=== PATIENT | female | born 1995 | race Caucasian/White ===

== ENCOUNTER 2020-12-13 00:53 | Emergency (ER) | payer MEDICAID, SELFPAY ==
--- NOTE | ~2020-12-13 | XR_ITS ---
EXAMINATION: XR TIBIA AND FIBULA, LEFT CLINICAL INFORMATION: Fall. Rule out fracture and foreign body. COMPARISON: None TECHNIQUE: AP and lateral views of the left tibia and fibula were obtained. FINDINGS: Soft tissue irregularity overlies the proximal tibia/fibula. No fracture or cortical disruption. Alignment is maintained at the knee and ankle. No radiopaque foreign body. XR/XR tibia fibula LT 2V IMPRESSION: Proximal soft tissue laceration below the knee. No radiopaque foreign body or acute osseous abnormality.
[2020-12-13 01:06] VITALS: BP 121/59; BP 130/84; PULSE 113; PULSE 90; RESP 15; TEMP 36.8; O2SAT 98; BMI 38.4
--- NOTE | 2020-12-13 01:30 | ED_ITS ---
HPI - Wound/Laceration General Chief Complaint: Wound/Laceration Stated Complaint: etoh fall leg lac Time Seen by Provider: 12/13/20 01:13 Source: patient, family (Significant other's) and EMS Mode of arrival: EMS Limitations: no limitations History of Present Illness HPI narrative: 25-year-old female presented by ambulance for evaluation of injury to the left leg after fall. This is a 25-year-old female who admitted to drinking alcohol last night, patient was going upstairs missed her step and fell down causing injury to her left leg causing a 9 cm cut under the left knee. Patient otherwise declined any other symptoms. Related Data Previous Rx's Medication Instructions Recorded doxycycline hyclate 100 mg PO BID #14 cap 12/13/20 Allergies Allergy/AdvReac Type Severity Reaction Status Date / Time No Known Allergies Allergy Unverified 04/01/20 17:55 [No Known Allergies*] Review of Systems Review of Systems: All other systems are reviewed and are negative Constitutional: Reports as per HPI and Reports no additional constitutional complaints Eyes: Reports as per HPI and Reports no additional eye complaints Reports system reviewed and no additional complaints, except as documented Cardiovascular: Reports as per HPI and Reports no additional cardiovascular complaints Respiratory: Reports as per HPI and Reports no additional respiratory complaints Gastrointestinal: Reports as per HPI and Reports no additional gastrointestinal complaints Genitourinary: Reports no additional female genitourinary complaints Musculoskeletal: Reports no additional musculoskeletal complaints Skin/Breast: Reports system reviewed and no additional complaints, except as docu Psychiatric: Reports no additional psychiatric complaints Endocrine: Reports no additional endocrine complaints Hematologic/Lymphatic: Reports no additional hematologic/lymphatic complaints Allergic/Immunologic: Reports no additional allergic/immunologic complaints Reports system reviewed and no additional complaints, except as documented and Reports Abnormal speech present [facility] Past Medical History Medical History No known health problems Surgical History No history of previous surgery Social History Social History Alcohol intake: current Alcohol intake frequency: a few times a week Alcohol type: hard liquor Patient Tobacco Use Status: Current everyday Tobacco user Use of substances other than those prescribed or required for medical reasons: No Advance Directives: No Advance Directives Information Provided: No Patient : No Physical Exam Vital Signs: Vital Signs: Last Vital Signs Temp 98.3 F 12/13/20 01:06 Pulse 113 H 12/13/20 01:06 Resp 15 12/13/20 01:06 BP 121/59 L 12/13/20 01:06 Pulse Ox 98 12/13/20 01:06 Body Mass Index 38.4 Vital signs have been reviewed as appeared to be correct. Blood pressure normal. Heart rate elevated. Respiration rate normal. Temperature normal. Oxygen saturation normal. Appearance: Alert. Oriented X3. No acute distress. Head: Normal external exam. Normocephalic. Atraumatic. No Serrano signs noted. No raccoon eyes noted Eyes: PERRLA. EOMI. Conjunctiva and sclera normal. Eyelids normal. ENT: TM's Normal. Pharynx normal. Uvula midline. Moist mucous membranes. No trismus noted. No drooling noted. No muffled voice noted. Neck: Normal inspection. Neck supple. FROM. No adenopathy. Thyroid Normal. No meningeal signs. No neck mass noted. CVS: Normal heart rate and rhythm. Heart sound normal. No murmurs noted. Pulses normal throughout. Respiratory: No respiratory distress. Painless inspiration. Breath sounds normal. No wheezes/rales/rhonchi noted. Chest nontender. No accessory muscle usage noted or decreased air movement noted. Abdomen: Soft and nontender. Bowel sounds normal in all 4 quadrants. No distention noted. No organomegaly noted. No visible injury noted. Back: No CVA tenderness. Full range of motion noted. Skin: Skin warm and dry. Normal skin color. Normal skin turgor. No rashes/lesions/lacerations noted. Extremities: No lower extremity edema. Extremities exhibit normal range of motion. Extremities nontender. Neuro: Oriented X 3. No motor deficit. No sensory deficit. Reflexes normal. Course Course Course Narrative: Assessment and plan. 25-year-old female fell while trunk sustained a 9 cm laceration in her left leg, please refer to procedure note, because size of the wound and proximity to the bone will start the patient on prophylactic antibiotic doxycycline, will update tetanus booster. Procedures Laceration Laceration 1: Site: lower extremity (Proximal left leg under the left knee.) Side (If applicable): left Size (cm): 9 Description: linear Depth: simple, single layer Local Anesthetic: lidocaine 2% Amount of anesthesia used (mL): 20 Pre-repair: wound explored and irrigated extensively (Copious irrigation of 2 L of normal saline.) Skin layer closed with: other (Surgical santosh were used #21 santosh) MDM - Wound/Laceration Imaging Data Left leg x-ray: Radiologist's impression: Proximal soft tissue laceration below the knee. No radiopaque foreign body or acute osseous abnormality. Discharge Plan Discharge Clinical Impression: Laceration Patient Disposition: Home, Self-Care Instructions: Laceration (ED) Additional Instructions: [place] need to be removed in 7-10 days either return to the emergency department or by your primary doctor. Prescriptions: New doxycycline hyclate 100 mg capsule 100 mg PO BID Qty: 14 RF: 0 Referrals: [facility] [Primary Care Provider] - 10 days (For santosh removed)
[2020-12-13] MEDS: Diphth,Pertus(ACell),Tet Adult 0.5 ML SYRINGE IM (01:48)
== END 2020-12-13 02:13 | disposition home or self-care (01) ==
PROVIDERS: Emergency Provider Emergency Medicine
DX: S81.812A Laceration without foreign body, left lower leg, initial encounter (principal); W17.89XA Other fall from one level to another, initial encounter; Y93.89 Activity, other specified; Y92.038 Other place in apartment as the place of occurrence of the external cause; Y99.9 Unspecified external cause status
CPT/HCPCS: 12004; 73590; 90471; 90715; 99284

== ENCOUNTER 2021-01-03 16:36 | Emergency (ER) | payer MEDICAID, SELFPAY ==
[2021-01-03 16:39] VITALS: BP 137/74; PULSE 100; RESP 16; TEMP 37; O2SAT 98; BMI 34.9
--- NOTE | 2021-01-03 17:15 | ED_ITS ---
HPI - General Adult General Chief complaint: General Medical Stated complaint: Staple removal Time Seen by Provider: 01/03/21 17:14 Source: patient Mode of arrival: ambulatory Limitations: no limitations History of Present Illness HPI narrative: Otherwise healthy 25-year-old female who denies significant past medical or surgical history denies any allergies suffered a laceration to the upper nassar of the left leg on December 13 which required total of 21 santosh for repair. She was instructed to have these removed in 10-14 days. States she was busy and forgot. At that time she was also given tetanus vaccination and prophylactic antibiotic of doxycycline b.i.d. for 10 days which she also states she forgot to take. States slight redness at the site of the santosh otherwise no swelling or discharge. Onset (ago): week(s) Location: left and lower extremity Radiation: non-radiation Severity: mild Relieving factors: none Exacerbating factors: none Associated symptoms: denies other symptoms Related Data Previous Rx's Medication Instructions Recorded doxycycline hyclate 100 mg PO BID #14 cap 12/13/20 Allergies Allergy/AdvReac Type Severity Reaction Status Date / Time No Known Allergies Allergy Unverified 04/01/20 17:55 [No Known Allergies*] Review of Systems Review of Systems: Constitutional: No Weight loss, No Fever, No Chills, No Night Sweats, No Fatigue, No Malaise ENT/Mouth: No Hearing loss, No Ear Pain, No Nasal Congestion, No Sinus Pain, No Hoarseness, No sore throat, No Rhinorrhea, No Swallowing Difficulty Eyes: No Eye Pain, No Swelling, No Redness, No Foreign Body, No Discharge, No Vision Changes Cardiovascular: No Chest Pain, No SOB, No Dyspnea on Exertion, No Orthopnea, No Edema, No Palpitations Respiratory: No Cough, No Sputum, No Wheezing, No Smoke Exposure, No Dyspnea Gastrointestinal: No Nausea, No Vomiting, No Diarrhea, No Constipation, No abdominal Pain, No Hematochezia, No Melena Genitourinary: no irregular bleeding, No Dysuria, No Urinary Frequency, No Hematuria, No Urinary Incontinence, No Urgency, No Flank Pain, No Urinary Flow Changes, No Hesitancy Musculoskeletal: No joint pain, No Myalgias, No Joint Swelling Skin: No Skin Lesions, No rash, slight redness at the laceration site Neuro: No Weakness, No Numbness, No Paresthesias, No Loss of Consciousness, No Dizziness, No Headache Psych: No Social Issues Heme/Lymph: No Bruising, No Bleeding,No Lymphadenopathy Endocrine: No Polyuria, No Polydipsia, No Temperature Intolerance Yes all other systems are reviewed and are negative [facility] Past Medical History Medical History No known health problems Surgical History No history of previous surgery Social History Social History Alcohol intake: current Alcohol intake frequency: a few times a week Alcohol type: hard liquor Patient Tobacco Use Status: Current everyday Tobacco user Advance Directives: No Advance Directives Information Provided: Yes Patient : No Physical Exam Vital Signs: Vital Signs: Last Vital Signs Temp 98.6 F 01/03/21 16:39 Pulse 100 01/03/21 16:39 Resp 16 01/03/21 16:39 BP 137/74 01/03/21 16:39 Pulse Ox 98 01/03/21 16:39 Body Mass Index 34.9 Reviewed Const: General: cooperative and healthy appearing; No acute distress or intoxicated appearing Nutritional Appearance: average body habitus Orientation/consciousness: patient oriented x3 Chest: Chest palpation & inspection: normal inspection of the chest Resp: Effort & Inspection: normal respiratory effort Cardio: Jugular venous distension: no JVD Skin: General skin exam: no rashes or lesions noted Neuro: General: patient oriented x3 Extrem: General: Yes normal to inspection Elbow/forearm/wrist images: 1. Previously repaired laceration site with santosh intact. Total count santosh 21. All santosh intact. There is very minimal erythema at the staple site. There is no induration or expressible discharge. There is no pain. Distally intact. Full range of motion. Negative Homans. Pulses within normal limits. Course Course Course Narrative: 25-year-old otherwise healthy female here for staple removal after repair of laceration 21 days ago delayed removal given that she states she ?forgot? there is very slight erythema at the site. There is slight dehiscence in the center of the laceration otherwise is healed well I will leave [address] otherwise have removed the 18 other santosh. She will take doxycycline as prescribed. States she does not have much sun exposure I did provide her wit h warning signs for doxycycline use. She feels comfortable plan. She will return in 3 days to have the remainder 3 santosh removed. Procedures Procedure Narrative Procedure Narrative: Left nassar site clean with alcohol prep wipe, 18 santosh removed using staple removal tool. Tolerated very well. No bleeding or expressible discharge the site. Very mild erythema. DSD applied. Discharge Plan Discharge Clinical Impression: Removal of staple, Infected laceration Patient Disposition: Home, Self-Care Instructions: Laceration (ED), Staple Care (ED) Additional Instructions: You had a total of 18 santosh removed from the left nassar- Due to delayed removal there is a slight infection at the site Please take the antibiotics as prescribed Return in 3 days to have the remainder 3 santosh removed Return sooner if any concerns or worsening symptoms Follow wound care instructions as reviewed; do not submerge the wound in water, bathtub, river. Thank you Prescriptions: No Action doxycycline hyclate 100 mg capsule 100 mg PO BID Qty: 14 RF: 0 Referrals: Golden Johnson, [facility] [Emergency Midlevel Provider] - 3 days (Staple removal)
== END 2021-01-03 17:30 | disposition home or self-care (01) ==
PROVIDERS: Emergency Provider Emergency Medicine
DX: S81.812D Laceration without foreign body, left lower leg, subsequent encounter (principal); L08.9 Local infection of the skin and subcutaneous tissue, unspecified; X58.XXXD Exposure to other specified factors, subsequent encounter
CPT/HCPCS: 99283

== ENCOUNTER 2021-09-25 18:34 | Emergency (ER) | payer MEDICAID, SELFPAY ==
[2021-09-25 18:39] VITALS: BP 146/74; PULSE 103; RESP 19; TEMP 36.4; O2SAT 99; BMI 36.6
--- NOTE | 2021-09-25 20:48 | ED.GENADULT ---
HPI - General Adult General Chief complaint: General Medical Stated complaint: coughing/tooth pain Time Seen by Provider: 09/25/21 20:36 History of Present Illness HPI narrative: Patient is a 25-year-old female presents today with having coughing congestion upper respiratory symptoms that is been ongoing since Sunday. Patient is a smoker. Have not been vaccinated for COVID. Also proximally 1 and half weeks ago patient had her front teeth pulled. Has been having pain in that area as well. There is no systemic complaints. No nausea no vomiting. No cough no congestion or upper respiratory symptoms. Patient from home. No chest pain no fever Related Data Previous Rx's Medication Instructions Recorded doxycycline hyclate 100 mg capsule 100 mg PO BID #14 cap 12/13/20 azithromycin 250 mg tablet See Rx Instructions .ROUTE 09/25/21 .COMPLEX #6 tab Allergies Allergy/AdvReac Type Severity Reaction Status Date / Time No Known Allergies Allergy Verified 09/25/21 20:31 [No Known Allergies*] Review of Systems Review of Systems: Positive generalized malaise positive coughing upper respiratory symptoms Positive toothache Yes all other systems are reviewed and are negative [facility] Past Medical History Attestation statement: The following information was validated with the patient. Medical History No known health problems Surgical History No history of previous surgery Social History Social History Alcohol intake: current Alcohol intake frequency: a few times a week Alcohol type: hard liquor Patient Tobacco Use Status: Current everyday Tobacco user Advance Directives: No Advance Directives Information Provided: Yes Physical Exam ED Vital Signs: Vital Signs - 24 hr 09/25/21 18:39 Temperature 97.6 F Pulse Rate 103 H Respiratory Rate 19 Blood Pressure 146/74 H Pulse Oximetry 99 BMI result Body Mass Index 36.6 Appearance: Alert. Oriented X3. No acute distress. Eyes: Pupils equal, round and reactive to light. ENT: Pharynx normal. There is a in dry socket in the upper front tooth. Posterior pharynx is normal. There is no erythema noted. TMs are intact. Neck: Normal inspection. Neck supple. No lymph nodes noted. No crepitus CVS: Normal heart rate and rhythm. Pulses normal. Normal S1 and S2 Respiratory: No respiratory distress. Breath sounds normal. No Wheezing. No rales Abdomen: Soft and nontender. No rigidity. No distention. good BS x4 Skin: Skin warm and dry. Normal skin color. Normal skin turgor. Extremities: No lower extremity edema. Neurovascular intact to all extremities. No Lacerations. No Rash Neuro: Oriented X 3. No motor deficit. No sensory deficit. Moving all extermities. No slurred speech Medical Decision Making MDM Narrative Medical decision making narrative: O2 sats 98% on room air. No distress. Lungs are clear. Sent off a COVID anyway as patient had not received her vaccine. Will discharge patient home. Given some lidocaine lollypop for her dry socket told to follow up with her dentist. Patient is in stable condition COVID RSV flu is negative. Will give patient a Z-Chris with discharge patient. Lab Data Labs: Lab Results 09/25/21 09/25/21 09/25/21 Range/Units 20:44 20:44 20:44 COVID-19 ([place]) Negative (Negative) COVID-19 Clin Com See Note Influenza Type A (DINO) Negative (Negative) Influenza Type B (DINO) Negative (Negative) Influenza A & B Note See Note S. pyogenes GrpA DINO Negative (Negative) Discharge Plan Discharge Clinical Impression: Tooth ache, Upper respiratory infection Patient Disposition: Home, Self-Care Instructions: Upper Respiratory Infection (DC) Prescriptions: New azithromycin 250 mg tablet See Rx Instructions .ROUTE .COMPLEX Qty: 6 0RF Rx Instructions: take 500 mg today (day 1), then 250 mg for 4 days (days 2-5) No Action doxycycline hyclate 100 mg capsule 100 mg PO BID Qty: 14 0RF Referrals: [facility] [Primary Care Provider] - 2 days
[2021-09-25 21:00] LABS: IDNOW Serial# 08D9AD1C
[2021-09-25 21:01] LABS: Strep A Nucleic Acid Negative (Negative)
[2021-09-25 21:08] LABS: COVID-19 Test Negative (Negative); IDNOW Serial# 16C4AD1C; Influenza A Negative (Negative); Influenza B2 Negative (Negative)
== END 2021-09-25 21:36 | disposition home or self-care (01) ==
PROVIDERS: Emergency Provider Emergency Medicine Emergency Medical Services
DX: J06.9 Acute upper respiratory infection, unspecified (principal); R05.9 Cough, unspecified; K08.89 Other specified disorders of teeth and supporting structures; F17.210 Nicotine dependence, cigarettes, uncomplicated; Z20.822 Contact with and (suspected) exposure to COVID-19; Z71.6 Tobacco abuse counseling; Z79.899 Other long term (current) drug therapy
CPT/HCPCS: 87502; 87635; 87651; 99283

== ENCOUNTER 2021-12-19 20:28 | Emergency (ER) | payer MEDICAID, SELFPAY ==
--- NOTE | ~2021-12-19 | US_ITS ---
EXAMINATION: ULTRASOUND RENAL LEFT CLINICAL INFORMATION: Left flank pain COMPARISON: Previous renal ultrasound January 2019 TECHNIQUE: Grayscale and color imaging of the left kidney FINDINGS: Left kidney is normal in size and contour and measures 12.6 x 5 x 4.8 cm in dimension. Renal cortical thickness and echogenicity is normal. No renal stone, mass or hydronephrosis is seen. US/US renal LT IMPRESSION: Normal left kidney.
[2021-12-19 21:00] VITALS: BP 127/67; PULSE 93; RESP 15; TEMP 37; O2SAT 97; BMI 36.6
--- NOTE | 2021-12-19 21:32 | ED.FEMALEGU ---
HPI - Female Genitourinary General Chief complaint: Urogenital-Female Stated complaint: Flank pain Time Seen by Provider: 12/19/21 21:25 Source: patient Mode of arrival: ambulatory Limitations: no limitations History of Present Illness MD elicited complaint: dysuria, flank pain and difficulty urinating Pertinent past history: pyelonephritis Onset (ago): week(s) (1) Location of symptoms: low back and flank Severity: moderate Female Urogenital Radiation: LLQ Quality of pain: dull and aching Consistency: intermittent Vaginal bleeding: none Urinary symptoms: Dysuria, Urgency, Frequency and Foul Smelling Urine Exacerbating factors: urination Relieving factors: none Associated symptoms: back pain Treatment prior to arrival: none Related Data Previous Rx's Medication Instructions Recorded doxycycline hyclate 100 mg capsule 100 mg PO BID #14 cap 12/13/20 azithromycin 250 mg tablet See Rx Instructions .ROUTE 09/25/21 .COMPLEX #6 tab cephalexin 500 mg capsule 500 mg PO TID 7 Days #21 cap 12/19/21 phenazopyridine 100 mg tablet 100 mg PO TID PRN #6 tab 12/19/21 (Pyridium) Allergies Allergy/AdvReac Type Severity Reaction Status Date / Time No Known Allergies Allergy Verified 09/25/21 20:31 [No Known Allergies*] Review of Systems Review of Systems: Constitutional : No Weight loss, No Fever, No Chills ENT/Mouth : No sore throat, No Rhinorrhea Eyes: No Swelling, No Redness Cardiovascular : No Chest Pain, No SOB, NoEdema Respiratory : No Cough, No Sputum, No Wheezing Gastrointestinal : no Nausea, no Vomiting, no Diarrhea no abdominal Pain, No Hematochezia, No Melena, pos flank pain Genitourinary : pos Dysuria, pos Urinary Frequency, No Hematuria, pos Urgency Musculoskeletal : No joint pain, No Myalgias, No Joint Swelling Skin : No Skin Lesions, No rash Neuro : No Weakness, No Numbness, No Dizziness, No Headache Psych : No Anxiety/Panic, No Depression Heme/Lymph: No Bruising, No Lymphadenopathy Endocrine : No Polyuria, No Polydipsia All other systems reviewed and are negative. [facility] Past Medical History Attestation statement: The following information was validated with the patient. Medical History (Updated 12/19/21 @ 22:43 by Carmen Carrion DO) No known health problems Surgical History (Updated 12/19/21 @ 21:45 by Carmen Carrion DO) Hx of cholecystectomy No history of previous surgery Social History Social History Alcohol intake: current Alcohol intake frequency: a few times a week Alcohol type: hard liquor Patient Tobacco Use Status: Current everyday Tobacco user Advance Directives: No Advance Directives Information Provided: No Physical Exam Vital Signs: Vital Signs: Last Vital Signs Temp 98.4 F 12/19/21 23:29 Pulse 73 12/19/21 23:29 Resp 16 12/20/21 00:11 BP 104/60 12/19/21 23:29 Pulse Ox 99 12/19/21 23:29 BMI result Body Mass Index 36.6 Appearance: Alert. Oriented X3. No acute distress. Eyes: Pupils equal, round and reactive to light. ENT: Pharynx normal. Neck: Normal inspection. Neck supple. CVS: Normal heart rate and rhythm. Pulses normal. Respiratory: No respiratory distress. Breath sounds normal. Abdomen: Soft and nontender. Back: mild L CVA ttp Skin: Skin warm and dry. Normal skin color. Normal skin turgor. Extremities: No lower extremity edema. No calf ttp Neuro: Oriented X 3. No motor deficit. No sensory deficit. Course Course Course Narrative: not toxic, no stone seen on US - stable for DC MDM - Female Genitourinary MDM Narrative Medical decision making narrative: 26 yo female with hx of cholecystectomy comes here with c/o L flank pain and dysuria no vomiting no fevers, not toxic. At this time patient's symptoms concerning for UTI vs pyelonephritis. She is afebrile not toxic, not vomiting. Will obtain UA, labs, US to r/o stone. Suspect if infection given she is not toxic can be managed with oral medications at home. Lab Data Result diagrams: 12/19/21 21:28 12/19/21 21:28 Labs: Lab Results 12/19/21 12/19/21 12/19/21 Range/Units 21:28 21:28 22:07 WBC 6.9 (4.8-10.8) X10*3/uL RBC 4.51 (4.20-5.50) X10*6/uL Hgb 11.6 L (12.0-16.0) g/dl Hct 36.7 L (37.0-47.0) % MCV 81.4 (80.0-98.0) fL MCH 25.7 L (27.0-33.0) pg MCHC 31.6 (31.0-35.0) g/dl RDW 14.8 (11.0-16.0) % Plt Count 198 (160-400) X10*3/uL MPV 9.3 L (9.4-12.3) fL Immature Gran % (Auto) 0.3 (0.0-0.4) % Neut % (Auto) 57.5 (45-73) % Lymph % (Auto) 31.7 (20-40) % Leslie % (Auto) 6.2 (2-11) % Eos % (Auto) 3.9 (0-4) % Baso % (Auto) 0.4 (0-2) % Lymph # (Auto) 2.2 (1.2-4.9) X10*3/uL Leslie # (Auto) 0.4 (0.1-1.2) X10*3/uL Eos # (Auto) 0.3 (0.0-0.4) X10*3/uL Baso # (Auto) 0.0 (0.0-0.2) X10*3/uL Abs Immat Gran (auto) 0.02 (0.00-0.03) X10*3/uL Absolute Neuts (auto) 4.0 (2.0-8.3) x10*3/uL Absolute Nucleated RBC 0.000 (0.0-0.012) X10*3/uL Nucleated RBC % (auto) 0.0 (0.0-0.2) /100WBC Sodium 140 (135-145) mmol/L Potassium 3.8 (3.3-5.1) mmol/L Chloride 104 (96-108) mmol/L Carbon Dioxide 28 (22-29) mmol/L Anion Gap 12 (12-20) BUN 13 (9-16) mg/dL Creatinine 0.75 (0.5-1.4) mg/dL Estim Creat Clear Calc 130.6 Estimated GFR > 60 Random Glucose 92 (60-115) mg/dL Calcium 9.1 (8.4-10.2) mg/dL Total Bilirubin 0.4 (0.0-1.0) mg/dL AST 20 (5-31) U/L ALT 27 (0-31) U/L Alkaline Phosphatase 73 (39-117) U/L Total Protein 6.9 (6.5-8.0) g/dL Albumin 4.1 (3.5-5.0) g/dL Urine Color Urine Appearance Urine pH (5.0-8.0) Ur Specific [place] (1.005-1.025) Urine Protein (NEG-TRACE) MG/DL Urine Glucose (UA) (NEG) MG/DL Urine Ketones (NEG) MG/DL Urine Blood (NEG) Urine Nitrite (NEG) Ur Leukocyte Esterase (NEG) Urine RBC (0) /HPF Urine WBC (0-4) /HPF Ur Squamous Epith Cells /LPF Urine Bacteria /LPF Urine Mucus /LPF Urine Test NEGATIVE (NEGATIVE) 12/19/21 Range/Units 22:08 WBC (4.8-10.8) X10*3/uL RBC (4.20-5.50) X10*6/uL Hgb (12.0-16.0) g/dl Hct (37.0-47.0) % MCV (80.0-98.0) fL MCH (27.0-33.0) pg MCHC (31.0-35.0) g/dl RDW (11.0-16.0) % Plt Count (160-400) X10*3/uL MPV (9.4-12.3) fL Immature Gran % (Auto) (0.0-0.4) % Neut % (Auto) (45-73) % Lymph % (Auto) (20-40) % Leslie % (Auto) (2-11) % Eos % (Auto) (0-4) % Baso % (Auto) (0-2) % Lymph # (Auto) (1.2-4.9) X10*3/uL Leslie # (Auto) (0.1-1.2) X10*3/uL Eos # (Auto) (0.0-0.4) X10*3/uL Baso # (Auto) (0.0-0.2) X10*3/uL Abs Immat Gran (auto) (0.00-0.03) X10*3/uL Absolute Neuts (auto) (2.0-8.3) x10*3/uL Absolute Nucleated RBC (0.0-0.012) X10*3/uL Nucleated RBC % (auto) (0.0-0.2) /100WBC Sodium (135-145) mmol/L Potassium (3.3-5.1) mmol/L Chloride (96-108) mmol/L Carbon Dioxide (22-29) mmol/L Anion Gap (12-20) BUN (9-16) mg/dL Creatinine (0.5-1.4) mg/dL Estim Creat Clear Calc Estimated GFR Random Glucose (60-115) mg/dL Calcium (8.4-10.2) mg/dL Total Bilirubin (0.0-1.0) mg/dL AST (5-31) U/L ALT (0-31) U/L Alkaline Phosphatase (39-117) U/L Total Protein (6.5-8.0) g/dL Albumin (3.5-5.0) g/dL Urine Color YELLOW Urine Appearance HAZY Urine pH 7.0 (5.0-8.0) Ur Specific [place] 1.020 (1.005-1.025) Urine Protein NEG (NEG-TRACE) MG/DL Urine Glucose (UA) NEG (NEG) MG/DL Urine Ketones NEG (NEG) MG/DL Urine Blood 1+ H (NEG) Urine Nitrite NEG (NEG) Ur Leukocyte Esterase TRACE H (NEG) Urine RBC 10-14 H (0) /HPF Urine WBC 10-14 H (0-4) /HPF Ur Squamous Epith Cells 1+ /LPF Urine Bacteria 2+ /LPF Urine Mucus 2+ /LPF Urine Test (NEGATIVE) Discharge Plan Discharge Clinical Impression: Pyelonephritis Patient Disposition: Home, Self-Care Instructions: Kidney Infection (ED) Additional Instructions: return to ED for any worsening symptoms or concerns no kidney stone seen on US Prescriptions: New cephalexin 500 mg capsule 500 mg PO TID 7 Days Qty: 21 0RF phenazopyridine [Pyridium] 100 mg tablet 100 mg PO TID PRN (Reason: pain) Qty: 6 0RF No Action doxycycline hyclate 100 mg capsule 100 mg PO BID Qty: 14 0RF azithromycin 250 mg tablet See Rx Instructions .ROUTE .COMPLEX Qty: 6 0RF Rx Instructions: take 500 mg today (day 1), then 250 mg for 4 days (days 2-5) Referrals: Yuliya Cadet [facility] [Primary Care Provider] - 2 days (if not better) Stand Alone Forms: Work/School Release Interventions: ED Discharge Assessment Last Done: 12/20/21 00:12 Discharge Date/Time: 12/20/21 00:13
[2021-12-19 21:33] LABS: MANUAL DIFF FLAG NO
[2021-12-19 21:35] LABS: Basophils Percent Auto 0.4 % (0-2); Eosinophils Absolute Auto 0.3 X10*3/uL (0.0-0.4); Eosinophils Percent Auto 3.9 % (0-4); Hematocrit 36.7 % (37.0-47.0); Hemoglobin 11.6 g/dl (12.0-16.0); Imm Gran Abs Auto 0.02 X10*3/uL (0.00-0.03); Imm Gran Pct Auto 0.3 % (0.0-0.4); Lymphocytes Absolute Auto 2.2 X10*3/uL (1.2-4.9); Lymphocytes Percent Auto 31.7 % (20-40); Mean Corpuscular HGB Conc 31.6 g/dl (31.0-35.0); Mean Corpuscular Hemoglobin 25.7 pg (27.0-33.0); Mean Corpuscular Volume 81.4 fL (80.0-98.0); Mean Platelet Volume 9.3 fL (9.4-12.3); Monocytes Absolute Auto 0.4 X10*3/uL (0.1-1.2); Monocytes Percent Auto 6.2 % (2-11); Neutrophils Percent Auto 57.5 % (45-73); Platelet Count 198 X10*3/uL (160-400); Red Blood Count 4.51 X10*6/uL (4.20-5.50); Red Cell Distribution Width 14.8 % (11.0-16.0); White Blood Count 6.9 X10*3/uL (4.8-10.8)
[2021-12-19 21:52] LABS: Alanine Aminotransferase 27 U/L (0-31); Albumin Level 4.1 g/dL (3.5-5.0); Alkaline Phosphatase 73 U/L (39-117); Anion Gap 12 (12-20); Aspartate Amino Transferase 20 U/L (5-31); Bilirubin Total 0.4 mg/dL (0.0-1.0); Blood Urea Nitrogen 13 mg/dL (9-16); Calcium 9.1 mg/dL (8.4-10.2); Carbon Dioxide 28 mmol/L (22-29); Chloride 104 mmol/L (96-108); Creatinine Clr Calc Pharmacy 130.6; Estimated Glomerular Filt Rate > 60; Glucose Random 92 mg/dL (60-115); Potassium 3.8 mmol/L (3.3-5.1); Sodium 140 mmol/L (135-145); Total Protein 6.9 g/dL (6.5-8.0)
[2021-12-19] MEDS: 0.9 % Sodium Chloride 1,000 ML 999 ML IV (22:17)
[2021-12-19] MEDS: Ketorolac Tromethamine 30 MG/ML VIAL IVPUSH (22:17)
[2021-12-19 22:18] LABS: Color Urine YELLOW; Glucose Urine UA NEG (NEG); Leukocyte Esterase Urine TRACE (NEG); Nitrite Urine NEG (NEG); Urine Blood 1+ (NEG); Urine Ketones NEG (NEG); Urine Protein NEG (NEG-TRACE)
[2021-12-19 22:20] LABS: Appearance Urine HAZY
[2021-12-19 22:21] LABS: UPreg QC Valid YES; Urine Pregnancy NEGATIVE (NEGATIVE)
[2021-12-19 22:32] LABS: Bacteria Urine 2+ /LPF; Mucus Urine 2+ /LPF; Squamous Epithelial Cell Urine 1+ /LPF
[2021-12-19] MEDS: cefTRIAXone sodium 1 GM in 0.9 % Sodium Chloride 50 ML IV (23:13)
[2021-12-19 23:29] VITALS: BP 104/60; PULSE 73; RESP 18; TEMP 36.9; O2SAT 99
[2021-12-20 00:11] VITALS: RESP 16
== END 2021-12-20 00:13 | disposition home or self-care (01) ==
PROVIDERS: Emergency Provider Emergency Medicine; PCP Nurse Practitioner Primary Care
DX: N12 Tubulo-interstitial nephritis, not specified as acute or chronic (principal); R10.9 Unspecified abdominal pain; F17.200 Nicotine dependence, unspecified, uncomplicated
CPT/HCPCS: 36415; 76775; 80053; 81001; 81025; 85025; 96361; 96365; 96375; 99283; 99284; J0696; J1885

== ENCOUNTER 2022-01-09 08:12 | Emergency (ER) | payer MEDICAID, SELFPAY ==
[2022-01-09 08:15] VITALS: BP 122/62; PULSE 81; RESP 18; TEMP 36.8; O2SAT 97; BMI 36.6
--- NOTE | 2022-01-09 08:47 | ED_ITS ---
HPI - Back Pain/Injury General Chief Complaint: Back Pain/Injury Stated Complaint: back pain Time Seen by Provider: 01/09/22 08:25 Source: patient Mode of arrival: ambulatory Limitations: no limitations History of Present Illness HPI Narrative: Patient presents emergency department for evaluation of left lower back pain. She reports a couple of weeks ago she was lifting some heavy and twisted the wrong way? old my back? on the left side. Was evaluated at [facility], given a prescription for cyclobenzaprine, and her symptoms ultimately resolved, did not require physical therapy at that time. She states that yesterday she moved quickly to grab a child in attempt to prevent them from falling, and subsequently felt a sharp pull to her left lower back similar to her previous injury. Last night she took the cyclobenzaprine and was able to sleep, but states that her pain continues this morning. Took ibuprofen 600 mg with minimal relief. Pain is radiating down her left leg. Denies fevers, chills, burning with micturition, urinary frequency/urgency/hesitancy, bladder or bowel dysfunction, numbness or tingling of the perineum or bilateral legs. Denies any recent surgical procedures, any known immune compromising conditions, personal history of cancer, or IV drug usage. MD elicited complaint: back pain Related Data Previous Rx's Medication Instructions Recorded doxycycline hyclate 100 mg capsule 100 mg PO BID #14 caps 12/13/20 azithromycin 250 mg tablet See Rx Instructions PO .COMPLEX 09/25/21 upper resp infection #6 tabs cephalexin 500 mg capsule 500 mg PO TID 7 days #21 caps 12/19/21 phenazopyridine 100 mg tablet 100 mg PO TID PRN pain 6 doses #6 12/19/21 (Pyridium) tabs cefuroxime axetil 250 mg tablet 250 mg PO BID 7 days #14 tabs 01/09/22 diclofenac sodium 1 % topical gel 2 g topical QID #100 grams 01/09/22 Allergies Allergy/AdvReac Type Severity Reaction Status Date / Time No Known Allergies Allergy Verified 01/09/22 08:20 [No Known Allergies*] Review of Systems Review of Systems: Constitutional: No weight loss, fever, chills, weakness or fatigue. Skin: No rash or itching. Cardiovascular: No chest pain, chest pressure or chest discomfort. No palpitations Respiratory: No shortness of breath, cough or sputum production. Gastrointestinal: No anorexia, nausea, vomiting or diarrhea. No abdominal pain Genitourinary: No burning micturition. No urinary frequency or incontinence. Neurologic: No headache, dizziness, syncope, unilateral weakness, ataxia, numbness or tingling in the extremities. No change in bowel or bladder control. Musculoskeletal: + Back pain as noted in HPI. No joint pain or stiffness. Lymphatics: No enlarged lymph nodes. Endocrine: No polyuria or polydipsia. Yes all other systems are reviewed and are negative PMFSH Past Medical History Attestation statement: The following information was validated with the patient. Source: old records reviewed Medical History No known health problems Surgical History Hx of cholecystectomy No history of previous surgery Social History Social History Alcohol intake: current Alcohol intake frequency: a few times a week Alcohol type: hard liquor Patient Tobacco Use Status: Current everyday Tobacco user Advance Directives: No Advance Directives Information Provided: No Physical Exam Vital Signs: Vital Signs: Last Vital Signs Temp 98.2 F 01/09/22 08:15 Pulse 81 01/09/22 08:15 Resp 18 01/09/22 08:15 BP 122/62 01/09/22 08:15 Pulse Ox 97 01/09/22 08:15 O2 Del Method 01/09/22 08:15 BMI result Body Mass Index 36.6 Vital signs have been reviewed as normal and appeared to be correct. Blood pressure normal.? Heart rate normal.? Respiration rate normal. Temperature normal.? Oxygen saturation normal. Appearance: Alert.?Oriented to person, place and time. No acute distress.?Normal affect. Eyes: Pupils equal, round and reactive to light.? ENT: Pharynx normal.?? Neck: Normal inspection.? Neck supple.?? CVS: Heart sounds normal. Normal heart rate and rhythm.? Pulses normal; bilateral radial pulses 2+, bilateral posterior tibial/dorsalis pedis pulses 2+.? Respiratory: No respiratory distress.? Lung sounds clear to auscultation bilaterally?? Abdomen: Soft and non-tender. Normoactive bowel sounds. No pulsatile mass.?? Skin: Skin warm and dry.? Normal skin color.? Normal skin turgor.?? Extremities: No lower extremity edema.? No calf ttp? Back: + mild left paraspinal muscular tenderness from lumbar region to coccyx. No CVA tenderness. No midline spinal tenderness, step-off's, or deformity. Full ROM intact in bilateral lower extremities. Straight leg test negative on right; Straight leg test negative on left. No rashes, lesions, areas of induration or fluctuance, or signs of infection noted., Neuro: Moves all extremities spontaneously. 5/5 strength in hip extension/flexion, abduction, adduction. Sensation to light touch intact bilaterally. Patellar and Achilles reflex 2+ bilaterally. No ataxia, gait normal and steady.. No focal neuro deficits. Course Course Course Narrative: Patient is a 26-year-old female presenting to emergency department for evaluation of left lumbar back pain. Of note patient was treated 3 weeks ago for pyelonephritis with cephalexin. Denies any genitourinary symptoms at this time. However given presence of back pain, obtained urinalysis, positive leukoc yte esterase, WBC, RBC, reportedly not currently menstruating, concerning for infection, I discussed these findings with patient, she states that she still notices foul smell to her urine, but no dysuria, urinary frequency urgency/hesitancy, shared decision making with patient, and she would like to be treated at this time, urine culture sent and pending. urine test negative. Given prior to yesterday's incident she was asymptomatic from pain, suspect that Pain less likely secondary to urinaty tract infection, and is most consistent with muscular pain, although cannot completely exclude herniated disc. On neurological exam there are no deficits. Not consistent with spinal fracture, spinal infection, epidural abscess, AAA, epidural abscess, or dissection. No high risk past medical history including incontinence, fever, immunosuppression, recent surgery or lumbar puncture, coagulopathy, significant trauma, recent unintentional weight loss, pulsatile mass, history of cancer, history of TB, history of IV drug use that would warrant MRI or CT. Not consistent with ectopic , pyelonephritis, urinary tract infection, renal calculi, pelvic infection, appendicitis, diverticulitis. On exam no concern for cauda equina syndrome. No imaging is currently indicated at this time. Plan for discharge home with, patient has cyclobenzaprine already which she will trial as previously prescribed, bobbi hernandez, discussed use of Tylenol and ibuprofen, in addition to diclofenac gel, gentle stretching and exercise, and follow-up with primary care provider, and patient agreed with plan. MDM - Back Pain/Injury Lab Data Labs: Lab Results 01/09/22 01/09/22 Range/Units 08:56 08:56 Urine Color YELLOW Urine Appearance HAZY Urine pH 6.0 (5.0-8.0) Ur Specific [place] 1.025 (1.005-1.025) Urine Protein NEG (NEG-TRACE) MG/DL Urine Glucose (UA) NEG (NEG) MG/DL Urine Ketones NEG (NEG) MG/DL Urine Blood 2+ H (NEG) Urine Nitrite NEG (NEG) Ur Leukocyte Esterase 3+ H (NEG) Urine RBC 30-49 H (0) /HPF Urine WBC 30-49 H (0-4) /HPF Ur Squamous Epith Cells 3+ /LPF Urine Bacteria 1+ /LPF Urine Test NEGATIVE (NEGATIVE) Discharge Plan Discharge Clinical Impression: Strain of lumbar region, Urinary tract infection Patient Disposition: Home, Self-Care Instructions: Acute Low Back Pain (ED), Lower Back Exercises (ED) Additional Instructions: You can take ibuprofen 200 mg, 3 tablets (600mg) every 6-8 hours as needed for pain, in addition to Tylenol 500 mg, 2 tablets (1,000mg) every 4-6 hours as needed for pain, but not to exceed 3 doses daily (3,000mg).? Diclofenac cream to left lower back, gentle stretching and exercises the low back and legs. You may use the cyclobenzaprine your previously prescribed as needed for pain, as we discussed it may make you drowsy, do not drive, operate machinery, or work for 8 hours after taking this medication. As we discussed, please contact your primary care provider to schedule a follow- up visit within 1 week. Return to the emergency department any new or worsening symptoms or concerns. Prescriptions: New cefuroxime axetil 250 mg tablet 250 mg PO BID 7 Days Qty: 14 0RF diclofenac sodium 1 % gel 2 g topical QID Qty: 100 0RF Rx Instructions: apply to left lower back No Action doxycycline hyclate 100 mg capsule 100 mg PO BID Qty: 14 0RF azithromycin 250 mg tablet See Rx Instructions .ROUTE .COMPLEX Qty: 6 0RF Rx Instructions: take 500 mg today (day 1), then 250 mg for 4 days (days 2-5) cephalexin 500 mg capsule 500 mg PO TID 7 Days Qty: 21 0RF phenazopyridine [Pyridium] 100 mg tablet 100 mg PO TID PRN (Reason: pain) Qty: 6 0RF Referrals: Yuliya Cadet, [employer] [Primary Care Provider] - 1 week Stand Alone Forms: Work/School Release
[2022-01-09 09:08] LABS: Appearance Urine HAZY; Color Urine YELLOW; Glucose Urine UA NEG (NEG); Leukocyte Esterase Urine 3+ (NEG); Nitrite Urine NEG (NEG); Specific Gravity - Urine 1.025 (1.005-1.025); UACC Culture Trigger YES; Urine Blood 2+ (NEG); Urine Ketones NEG (NEG); Urine Protein NEG (NEG-TRACE)
[2022-01-09 09:11] LABS: UPreg QC Valid YES; Urine Pregnancy NEGATIVE (NEGATIVE)
[2022-01-09 09:22] LABS: Bacteria Urine 1+ /LPF; RBC Urine 30-49 /HPF (0); Squamous Epithelial Cell Urine 3+ /LPF; WBC Urine 30-49 /HPF (0-4)
== END 2022-01-09 09:50 | disposition home or self-care (01) ==
PROVIDERS: Nurse Practitioner Family; Emergency Provider Emergency Medicine Emergency Medical Services; PCP Nurse Practitioner Primary Care
DX: M54.50 Low back pain, unspecified (principal); N39.0 Urinary tract infection, site not specified; F17.200 Nicotine dependence, unspecified, uncomplicated; Z71.6 Tobacco abuse counseling; Z79.899 Other long term (current) drug therapy
CPT/HCPCS: 81001; 81003; 81025; 87086; 99283

== ENCOUNTER 2022-02-23 06:50 | Emergency (ER) | payer MEDICAID, SELFPAY ==
--- NOTE | ~2022-02-23 | XR_ITS ---
EXAMINATION: XR ANKLE, LEFT CLINICAL INFORMATION: Fall. COMPARISON: Left tibia and fibular radiographs dated 12/13/2020. TECHNIQUE: AP, lateral, and mortise views of the left ankle. FINDINGS: No acute fracture or dislocation. The ankle mortise is maintained. No joint space narrowing or marginal osteophytes. No osseous erosion. No abnormal soft tissue calcification. Lateral soft tissue swelling. XR/XR ankle LT min 3V IMPRESSION: Lateral soft tissue swelling without acute osseous abnormality.
[2022-02-23 07:27] VITALS: BP 109/72; PULSE 114; RESP 20; TEMP 36.4; O2SAT 98; BMI 39.1
--- NOTE | 2022-02-23 07:40 | ED.LOWEXIN ---
HPI - Extremity Injury (Lower) General Chief Complaint: Extremity Injury, Lower Stated Complaint: l ankle inj non work related Time Seen by Provider: 02/23/22 06:52 Source: patient Mode of arrival: ambulatory Limitations: no limitations History of Present Illness MD complaint: ankle injury Onset (ago): minute(s) (just prior to arrival ) Type of Injury: blunt and inversion Place: street/outdoors Severity: moderate Relieving factors: immobilization Exacerbating factors: weight bearing and palpation Context: fall Associated symptoms: snap/pop sensation and swelling Other symptoms: none Treatments prior to arrival: cold therapy Related Data Previous Rx's Medication Instructions Recorded doxycycline hyclate 100 mg capsule 100 mg PO BID #14 caps 12/13/20 azithromycin 250 mg tablet See Rx Instructions PO .COMPLEX 09/25/21 upper resp infection #6 tabs cephalexin 500 mg capsule 500 mg PO TID 7 days #21 caps 12/19/21 phenazopyridine 100 mg tablet 100 mg PO TID PRN pain 6 doses #6 12/19/21 (Pyridium) tabs cefuroxime axetil 250 mg tablet 250 mg PO BID 7 days #14 tabs 01/09/22 diclofenac sodium 1 % topical gel 2 g topical QID #100 grams 01/09/22 cyclobenzaprine 10 mg tablet 10 mg PO TID PRN muscle spasm #14 02/23/22 tabs ibuprofen 600 mg tablet 600 mg PO Q6H PRN pain #30 tabs 02/23/22 Allergies Allergy/AdvReac Type Severity Reaction Status Date / Time No Known Allergies Allergy Verified 01/09/22 08:20 [No Known Allergies*] Review of Systems Review of Systems: Constitutional : No Fever, No Chills ENT/Mouth : No Ear Pain, No Hoarseness, No sore throat Eyes: No Eye Pain, No Swelling, No Redness, No Foreign Body Cardiovascular : No Chest Pain, No SOB Respiratory : No Cough, No Dyspnea Gastrointestinal : No Nausea, No Vomiting, No Diarrhea, No abdominal Pain Genitourinary : No Dysuria, No Hematuria Musculoskeletal : positive joint pain, No Myalgias, pos Joint Swelling Skin : No Skin lacerations, No rash Neuro : No Weakness, No Numbness, No Loss of Consciousness, No Dizziness, No Headache PMFSH Past Medical History Medical History No known health problems Surgical History Hx of cholecystectomy No history of previous surgery Social History Social History Alcohol intake: current Alcohol intake frequency: a few times a week Alcohol type: hard liquor Patient Tobacco Use Status: Current everyday Tobacco user Advance Directives: No Advance Directives Information Provided: No Physical Exam Vital Signs: Vital Signs: Last Vital Signs Temp 97.5 F 02/23/22 07:27 Pulse 114 H 02/23/22 07:27 Resp 20 02/23/22 07:27 BP 109/72 02/23/22 07:27 Pulse Ox 98 02/23/22 07:27 O2 Del Method 02/23/22 07:27 BMI result Body Mass Index 39.1 Appearance: Alert. Oriented X3. No acute distress. Eyes: Pupils equal, round and reactive to light. ENT: Pharynx normal. Neck: Normal inspection. Neck supple. CVS: Pulses normal. Respiratory: No respiratory distress. Abdomen: Soft and non-tender. Skin: Skin warm and dry. Normal skin color. Extremities: No lower extremity edema. abrasions on both knees, no prox fibula ttp, ttp along L lateral malleolus, SILT, 2+ DP and PT pulses Neuro: Oriented X 3. No motor deficit. No sensory deficit. MDM - Extremity Injury (Lower) MDM Narrative Medical decision making narrative: 26 yo female no sig PMH here with L ankle pain s/p fall off curb she is [place] intact on exam has no prox fibula ttp - xray negative for fracture will treat as sprain, anticipate DC home with supportive care Procedures Orthopedic Splinting/Casting Injury #1: Side: left Lower Extremity Injury Location: ankle Lower Extremity Immobilizer: stirrup splint Other Orthopedic Equipment: crutches Discharge Plan Discharge Clinical Impression: Ankle sprain and strain Patient Disposition: Home, Self-Care Instructions: Ankle Sprain (ED), Crutch Instructions (ED), Ankle Stirrup Splint (ED), R.I.C.E. Treatment (ED), Ice Pack Application (ED) Additional Instructions: return to ED for any worsening symptoms or concerns crutches for 5 days, air cast for 10 start to put weight on foot day 5 if not getting better see PCP Prescriptions: New cyclobenzaprine 10 mg tablet 10 mg PO TID PRN (Reason: muscle spasm) Qty: 14 0RF ibuprofen 600 mg tablet 600 mg PO Q6H PRN (Reason: pain) Qty: 30 0RF No Action doxycycline hyclate 100 mg capsule 100 mg PO BID Qty: 14 0RF azithromycin 250 mg tablet See Rx Instructions .ROUTE .COMPLEX Qty: 6 0RF Rx Instructions: take 500 mg today (day 1), then 250 mg for 4 days (days 2-5) cephalexin 500 mg capsule 500 mg PO TID 7 Days Qty: 21 0RF phenazopyridine [Pyridium] 100 mg tablet 100 mg PO TID PRN (Reason: pain) Qty: 6 0RF cefuroxime axetil 250 mg tablet 250 mg PO BID 7 Days Qty: 14 0RF diclofenac sodium 1 % gel 2 g topical QID Qty: 100 0RF Rx Instructions: apply to left lower back
[2022-02-23] MEDS: Cyclobenzaprine HCl 10 MG TABLET PO (08:11)
[2022-02-23] MEDS: Ketorolac Tromethamine 30 MG/ML VIAL IM (08:11)
== END 2022-02-23 08:18 | disposition home or self-care (01) ==
PROVIDERS: Emergency Provider Emergency Medicine; PCP Nurse Practitioner Primary Care
DX: S93.402A Sprain of unspecified ligament of left ankle, initial encounter (principal); S96.912A Strain of unspecified muscle and tendon at ankle and foot level, left foot, initial encounter; X50.1XXA Overexertion from prolonged static or awkward postures, initial encounter; Y93.9 Activity, unspecified; Y92.480 Sidewalk as the place of occurrence of the external cause; Y99.9 Unspecified external cause status
CPT/HCPCS: 73610; 96372; 99283; 99284; J1885

== ENCOUNTER 2022-07-11 15:34 | Emergency (ER) | payer MEDICAID, SELFPAY ==
--- NOTE | ~2022-07-11 | CT_ITS ---
EXAMINATION: CT ANGIOGRAM OF THE CHEST WITH AND WITHOUT CONTRAST (CT PULMONARY ANGIOGRAM FOR PE) CLINICAL INFORMATION: Reason for Exam cp and elevated ddimer COMPARISON: None TECHNIQUE: Prior to contrast administration, noncontrast localization images were obtained. Subsequently, multidetector volumetric imaging was performed from the thoracic inlet to below the diaphragms following the administration of 65 mL Omnipaque 350 intravenous contrast. No contrast reaction reported Sagittal, coronal, and MIP oblique sagittal reformatted images were obtained on the CT workstation, uploaded to PACS, and reviewed. This CT examination was performed using dose optimization techniques as appropriate, variously including the following: *Automated exposure control *Adjustment of mA and/or kV according to patient size (this includes techniques or standardized protocols for targeted exams where dose is matched to indication/reason for exam; i.e. extremities or head) *Use of iterative reconstruction technique Total exam dose-length product 345 mGy-cm FINDINGS: QUALITY OF STUDY/CONTRAST BOLUS: Satisfactory. PULMONARY ARTERIES: Right lower lobe pulmonary embolus is identified extending into posterior segmental and subsegmental branches. No definite left-sided embolus is seen. THORACIC AORTA: No aneurysm or dissection. LUNG: There is dependent opacity in the right lower lobe most consistent with atelectasis. PLEURA: No pleural effusion or pneumothorax. MEDIASTINUM: The visualized thyroid gland is unremarkable. There are subcentimeter mediastinal lymph nodes within the range of normal variation. Cardiac size is within normal limits; no pericardial effusion. CHEST WALL/AXILLA: No axillary or internal mammary lymphadenopathy. OSSEOUS STRUCTURES: No acute or suspicious osseous abnormality. UPPER ABDOMEN: There is hypoattenuation of the liver suggesting steatosis. Patient is status post cholecystectomy. No reflux of contrast into the hepatic veins to suggest elevated right heart pressures. CT/CT angio chest PE protocol IMPRESSION: 1. Right lower lobe pulmonary embolus. 2. Small right pleural effusion with adjacent dependent atelectasis. VTE: negative This critical result was discussed with Pavan Márquez on 07/12/2022 1:06 AM, and it was ascertained that the content and urgency of the report was understood at the time of direct communication.
--- NOTE | ~2022-07-11 | CT_ITS ---
EXAMINATION: CT ABDOMEN AND PELVIS WITHOUT CONTRAST CLINICAL INFORMATION: Right flank pain. Rib pain. COMPARISON: No pertinent prior studies are available for comparison. TECHNIQUE: Multidetector volumetric imaging was performed from the lung bases to the pubic symphysis without contrast. Sagittal and coronal reformatted images were obtained on the technologist workstation. This CT examination was performed using dose optimization techniques as appropriate, variously including the following: *Automated exposure control. *Adjustment of mA and/or kV according to patient size (this includes techniques or standardized protocols for targeted exams where dose is matched to indication/reason for exam; i.e. extremities or head). *Use of iterative reconstruction technique. DLP: 974 mGy-cm FINDINGS: LUNG BASES: Small right-sided pleural effusion with associated compressive atelectasis of the right lung base. No demonstrated additional abnormalities of the visualized lung bases. No demonstrated abnormalities of the visualized cardiac structures. ABDOMEN/PELVIS: Liver, Biliary Ducts, and Gallbladder: The liver is enlarged, measuring 20.8 cm in craniocaudal dimension. Generalized hypoattenuation of the liver parenchyma (22 Hounsfield units). No demonstrated focal hepatic lesions or biliary ductal dilatation. Changes of prior cholecystectomy. Pancreas: The pancreas is normal in appearance. Adrenal Glands: The adrenal glands are normal in appearance. Spleen: The spleen is normal in appearance. Kidneys and Ureters: The unenhanced kidneys are normal in size without evidence of nephrolithiasis or hydronephrosis. No ureterolithiasis or hydroureter. Urinary Bladder: The urinary bladder is partially distended. Mild diffuse wall thickening of the urinary bladder with slight surrounding fat stranding. No bladder calculi are demonstrated. Gastrointestinal System: The stomach is decompressed and therefore not well evaluated on this exam. The small bowel is of normal caliber. Mild fatty deposition within the wall of the cecum and ascending colon. Otherwise, the colon is normal in appearance without focal wall thickening or pericolonic inflammatory change. Normal appendix. Genitourinary: No demonstrated adnexal soft tissue masses. Intra-abdominal and Retroperitoneal Spaces: No intra-abdominal free fluid collections or gas. No mesenteric, retroperitoneal, or inguinal lymphadenopathy. VASCULATURE: The abdominal aorta is of normal contour and caliber. MUSCULOSKELETAL: Mild multilevel degenerative changes of the spine. Bilateral L5 pars interarticularis defects. Mild left convex curvature of the upper lumbar spine. No lytic or sclerotic osseous lesions demonstrated. Small to moderate fat-containing periumbilical hernia. No soft tissue masses demonstrated. CT/CT abdomen pelvis wo IV con IMPRESSION: 1. Hepatomegaly with hepatic steatosis. 2. Small right-sided pleural effusion. 3. Mild fat stranding surrounding the urinary bladder. This is nonspecific but may be seen in the setting of nonspecific cystitis. Recommend correlation with urinalysis. 4. Nonspecific intramural fatty deposition throughout the colon. This can be seen as a normal finding in the setting of obesity, but can also been seen in association with Crohn's disease, ulcerative colitis, celiac disease, and radiation enteritis among other etiologies which are unlikely to be applicable in this patient.
--- NOTE | ~2022-07-11 | XR_ITS ---
EXAMINATION: XR CHEST CLINICAL INFORMATION: Chest pain, SOB COMPARISON: None TECHNIQUE: Frontal view of the chest was obtained. FINDINGS: No significant abnormality is noted involving the heart, lungs, mediastinum, bony thorax or soft tissues. XR/XR chest 1V IMPRESSION: Unremarkable chest examination.
--- NOTE | 2022-07-11 17:21 | ED.GENADULT ---
HPI - General Adult General Chief complaint: General Medical <FELICITY Mejias - Last Filed: 07/11/22 17:25> Stated complaint: Flank pain/Abdominal pain <FELICITY Mejias - Last Filed: 07/11/22 17:25> Time Seen by Provider: 07/11/22 21:43 <FELICITY Mejias - Last Filed: 07/11/22 17:25> Source: patient and family <Pavan Waite MD - Last Filed: 07/12/22 01:23> Mode of arrival: ambulatory <Pavan Waite MD - Last Filed: 07/12/22 01:23> Limitations: no limitations <Pavan Waite MD - Last Filed: 07/12/22 01:23> History of Present Illness HPI narrative: 26-year-old female came in for evaluation of right-sided chest pain that is radiating to the right shoulder was this patient is complaining of shortness of breath, the chest pain is worsening with taking a deep breath, no relieving factor, no aggravating factor, no recent travel, no recent prolonged immobilization, no lower extremity swelling or tenderness, use an arm implant for contraception. no lower extremity swelling or tenderness. Patient also been complaining of right upper quadrant pain and right flank pain and epigastric pain that is started since this morning pain is intensified in the epigastric area radiated to the right flank area associated with nausea but no vomiting pain started after taking ibuprofen, no alcohol consumption history. No dysuria, no urinary frequency, no blood in the urine. <Pavan Waite MD - Last Filed: 07/12/22 01:23> Related Data Home medications: Previous Rx's Medication Instructions Recorded doxycycline hyclate 100 mg capsule 100 mg PO BID #14 caps 12/13/20 azithromycin 250 mg tablet See Rx Instructions PO .COMPLEX 09/25/21 upper resp infection #6 tabs cephalexin 500 mg capsule 500 mg PO TID 7 days #21 caps 12/19/21 phenazopyridine 100 mg tablet 100 mg PO TID PRN pain 6 doses #6 12/19/21 (Pyridium) tabs cefuroxime axetil 250 mg tablet 250 mg PO BID 7 days #14 tabs 01/09/22 diclofenac sodium 1 % topical gel 2 g topical QID #100 grams 01/09/22 cyclobenzaprine 10 mg tablet 10 mg PO TID PRN muscle spasm #14 02/23/22 tabs ibuprofen 600 mg tablet 600 mg PO Q6H PRN pain #30 tabs 02/23/22 levofloxacin 750 mg tablet 750 mg PO DAILY #7 tabs 07/11/22 omeprazole magnesium 20 mg 20 mg PO BID #20 tabs 07/11/22 tablet,delayed release (Prilosec OTC) phenazopyridine 100 mg tablet 100 mg PO TID #6 tabs 07/11/22 (Pyridium) apixaban 5 mg (74 tabs) tablets in 5 mg PO BID #74 ea 07/12/22 a dose pack (Eliquis DVT-PE Treat 30D Start) <FELICITY Mejias - Last Filed: 07/11/22 17:25> Allergies/adverse reactions: Allergies Allergy/AdvReac Type Severity Reaction Status Date / Time No Known Allergies Allergy Verified 07/11/22 17:26 [No Known Allergies*] <FELICITY Mejias - Last Filed: 07/11/22 17:25> Review of Systems Review of Systems: All other systems are reviewed and are negative Constitutional: Reports as per HPI and Reports no additional constitutional complaints Eyes: Reports as per HPI and Reports no additional eye complaints Reports system reviewed and no additional complaints, except as documented Cardiovascular: Reports as per HPI and Reports no additional cardiovascular complaints Respiratory: Reports as per HPI and Reports no additional respiratory complaints Gastrointestinal: Reports as per HPI and Reports no additional gastrointestinal complaints Genitourinary: Reports no additional female genitourinary complaints Musculoskeletal: Reports no additional musculoskeletal complaints Skin/Breast: Reports system reviewed and no additional complaints, except as docu Psychiatric: Reports no additional psychiatric complaints Endocrine: Reports no additional endocrine complaints Hematologic/Lymphatic: Reports no additional hematologic/lymphatic complaints Allergic/Immunologic: Reports no additional allergic/immunologic complaints Reports system reviewed and no additional complaints, except as documented and Reports Abnormal speech present <Pavan Waite MD - Last Filed: 07/12/22 01:23> [facility] Past Medical History Medical History: Medical History No known health problems <FELICITY Mejias - Last Filed: 07/11/22 17:25> Surgical History: Surgical History Hx of cholecystectomy No history of previous surgery <FELICITY Mejias - Last Filed: 07/11/22 17:25> Social History Social History: Social History Alcohol intake: current Alcohol intake frequency: a few times a week Alcohol type: hard liquor Patient Tobacco Use Status: Current everyday Tobacco user Smoked in Last 30 Days: Yes Use of substances other than those prescribed or required for medical reasons: No Advance Directives: No Advance Directives Information Provided: No <FELICITY Mejias - Last Filed: 07/11/22 17:25> Physical Exam ED Vital Signs: Vital Signs - 24 hr 07/11/22 17:22 07/11/22 21:54 07/12/22 00:15 Temperature 97.9 F 97.8 F 97.8 F Pulse Rate 87 91 91 Respiratory Rate 18 16 16 Blood Pressure 128/82 120/73 135/76 Pulse Oximetry 98 97 97 Oxygen Delivery Method Room Air Room Air Room Air BMI result Body Mass Index 38.2 <FELICITY Mejias - Last Filed: 07/11/22 17:25> Vital Signs - 24 hr 07/11/22 17:22 07/11/22 21:54 07/12/22 00:15 Temperature 97.9 F 97.8 F 97.8 F Pulse Rate 87 91 91 Respiratory Rate 18 16 16 Blood Pressure 128/82 120/73 135/76 Pulse Oximetry 98 97 97 Oxygen Delivery Method Room Air Room Air Room Air BMI result Body Mass Index 38.2 vital signs have been reviewed as appeared to be correct. Blood pressure normal. Heart rate normal. Respiration rate normal. Temperature normal. Oxygen saturation normal. <Pavan Waite MD - Last Filed: 07/12/22 01:23> Appearance: Alert. Oriented X3. No acute distress. Head: Normal external exam. Normocephalic. Atraumatic. No Serrano signs noted. No raccoon eyes noted Eyes: PERRLA. EOMI. Conjunctiva and sclera normal. Eyelids normal. ENT: TM's Normal. Pharynx normal. Uvula midline. Moist mucous membranes. No trismus noted. No drooling noted. No muffled voice noted. Neck: Normal inspection. Neck supple. FROM. No adenopathy. Thyroid Normal. No meningeal signs. No neck mass noted. CVS: Normal heart rate and rhythm. Heart sound normal. No murmurs noted. Pulses normal throughout. Respiratory: No respiratory distress. Painless inspiration. Breath sounds normal. No wheezes/rales/rhonchi noted. Chest nontender. No accessory muscle usage noted or decreased air movement noted. Abdomen: Soft and nontender. Bowel sounds normal in all 4 quadrants. No distention noted. No organomegaly noted. No visible injury noted. Back: No CVA tenderness. Full range of motion noted. Skin: Skin warm and dry. Normal skin color. Normal skin turgor. No rashes/lesions/lacerations noted. Extremities: No lower extremity edema. Extremities exhibit normal range of motion. Extremities nontender. Neuro: Oriented X 3. Cranial nerve exam: II-XII are grossly intact No motor deficit. No sensory deficit. Reflexes normal. <Pavan Waite MD - Last Filed: 07/12/22 01:23> Course Course Course Narrative: RME 1723 26 year old femal presents w/ pain under her right ribs w/ deep breathing reporting a/c intermittent shart chest discomfort worse w/ deep breathing. SOB is also present intermittently worse w/ exertion. Patient also complaining of upper abd pain since this am. No hx of DVT/PE or hypercoagulable DO PE-benign Plan- labs, imaging, cxr. viral testing, trop, ekg, dimer. Will order CT abd and pelvis. <FELICITY Mejias - Last Filed: 07/11/22 17:25> Reevaluation(s) Reevaluation #1: 26-year-old female came in for evaluation of chest pain with taking deep breath, and abdominal pain, physical exam and history and CT are consistent with pulmonary embolism, possible cystitis on the CT however patient has no symptoms given the right flank tenderness could be pyelonephritis will start the patient on antibiotic, elevated D-dimer and CTA of the lung shows a small right lung PE however stable O2 sat and RR. Start the patient on Eliquis as recommended 10 mg b.i.d. for a week then 5 mg b.i.d.. Start the patient on Levaquin floxacillin for UTI. Prilosec for gastritis. Will discharge to follow-up with PCP. <Pavan Waite MD - Last Filed: 07/12/22 01:23> Time: 01:19 <Pavan Waite MD - Last Filed: 07/12/22 01:23> Medications Administered Discontinued Medications Generic Name Dose Route Start Last Admin Trade Name Freq PRN Reason Stop Dose Admin Al Hydroxide/Mg Hydroxide 30 ml 07/11/22 21:55 07/11/22 22:50 Magnesium Hydrox/Alum Hydrox 30 Ml Oral.Susp PO 07/11/22 21:56 30 ml ONCE ONE Administration Iohexol 100 ml 07/12/22 00:32 07/12/22 00:32 Iohexol 350 Mg/Ml 100 Ml Infus..Btl IV 07/12/22 00:33 65 ml ONCE ONE Administration Levofloxacin 750 mg 07/11/22 21:55 07/11/22 22:49 Levofloxacin 750 Mg Tablet PO 07/11/22 21:56 750 mg ONCE ONE Administration Omeprazole 40 mg 07/11/22 21:55 07/11/22 22:49 Omeprazole 40 Mg Capsule.Dr PO 07/11/22 21:56 40 mg ONCE ONE Administration Phenazopyridine HCl 100 mg 07/11/22 21:55 07/11/22 22:50 Phenazopyridine Hcl 100 Mg Tablet PO 07/11/22 21:56 100 mg ONCE ONE Administration <FELICITY Mejias - Last Filed: 07/11/22 17:25> Medications Administered Discontinued Medications Generic Name Dose Route Start Last Admin Trade Name Freq PRN Reason Stop Dose Admin Al Hydroxide/Mg Hydroxide 30 ml 07/11/22 21:55 07/11/22 22:50 Magnesium Hydrox/Alum Hydrox 30 Ml Oral.Susp PO 07/11/22 21:56 30 ml ONCE ONE Administration Iohexol 100 ml 07/12/22 00:32 07/12/22 00:32 Iohexol 350 Mg/Ml 100 Ml Infus..Btl IV 07/12/22 00:33 65 ml ONCE ONE Administration Levofloxacin 750 mg 07/11/22 21:55 07/11/22 22:49 Levofloxacin 750 Mg Tablet PO 07/11/22 21:56 750 mg ONCE ONE Administration Omeprazole 40 mg 07/11/22 21:55 07/11/22 22:49 Omeprazole 40 Mg Capsule.Dr PO 07/11/22 21:56 40 mg ONCE ONE Administration Phenazopyridine HCl 100 mg 07/11/22 21:55 07/11/22 22:50 Phenazopyridine Hcl 100 Mg Tablet PO 07/11/22 21:56 100 mg ONCE ONE Administration <Pavan Waite MD - Last Filed: 07/12/22 01:23> Medical Decision Making Differential Diagnosis Differential Diagnoses: The differential diagnosis associated with the presentation includes ( PE/pleural effusion/pneumonia / gastritis/ right pyelonephritis / early appendicitis.) <Pavan Waite MD - Last Filed: 07/12/22 01:23> Lab Data MDM Lab Attestation statement: I reviewed the patient's lab results. <Pavan Waite MD - Last Filed: 07/12/22 01:23> Result Diagrams: : 07/11/22 17:55 07/11/22 17:55 <FELICITY Mejias - Last Filed: 07/11/22 17:25> Labs: Lab Results 07/11/22 07/11/22 07/11/22 Range/Units 17:55 17:55 17:55 WBC 6.6 (4.8-10.8) X10*3/uL RBC 4.77 (4.20-5.50) X10*6/uL Hgb 13.9 (12.0-16.0) g/dl Hct 41.6 (37.0-47.0) % MCV 87.2 (80.0-98.0) fL MCH 29.1 (27.0-33.0) pg MCHC 33.4 (31.0-35.0) g/dl RDW 12.8 (11.0-16.0) % Plt Count 196 (160-400) X10*3/uL MPV 9.3 L (9.4-12.3) fL Immature Gran % (Auto) 0.2 (0.0-0.4) % Neut % (Auto) 67.3 (45-73) % Lymph % (Auto) 23.2 (20-40) % [place] % (Auto) 5.0 (2-11) % Eos % (Auto) 3.5 (0-4) % Baso % (Auto) 0.8 (0-2) % Lymph # (Auto) 1.5 (1.2-4.9) X10*3/uL [place] # (Auto) 0.3 (0.1-1.2) X10*3/uL Eos # (Auto) 0.2 (0.0-0.4) X10*3/uL Baso # (Auto) 0.1 (0.0-0.2) X10*3/uL Abs Immat Gran (auto) 0.01 (0.00-0.03) X10*3/uL Absolute Neuts (auto) 4.5 (2.0-8.3) x10*3/uL Absolute Nucleated RBC 0.000 (0.0-0.012) X10*3/uL Nucleated RBC % (auto) 0.0 (0.0-0.2) /100WBC D-Dimer High Sensitivty 543 NG/ML Sodium 140 (135-145) mmol/L Potassium 4.1 (3.3-5.1) mmol/L Chloride 105 (96-108) mmol/L Carbon Dioxide 30 H (22-29) mmol/L Anion Gap 9 L (12-20) BUN 6 L D (9-16) mg/dL Creatinine 0.69 (0.5-1.4) mg/dL Estim Creat Clear Calc 145.4 Estimated GFR > 60 Random Glucose 110 (60-115) mg/dL Calcium 9.1 (8.4-10.2) mg/dL Magnesium 1.9 (1.6-2.6) mg/dL Total Bilirubin 0.6 (0.0-1.0) mg/dL AST 34 H D (5-31) U/L ALT 62 H (0-31) U/L Alkaline Phosphatase 78 (39-117) U/L Troponin I High Sens (<3.5-17.0) ng/L Total Protein 6.9 (6.5-8.0) g/dL Albumin 4.0 (3.5-5.0) g/dL Lipase 20 (8-78) U/L Urine Color Urine Appearance Urine pH (5.0-9.0) Ur Specific [place] (1.005-1.025) Urine Protein (Neg-Trace) mg/dL Urine Glucose (UA) (Negative) mg/dL Urine Ketones (Negative) mg/dL Urine Blood (Negative) Urine Nitrite (Negative) Ur Leukocyte Esterase (Negative) Urine RBC (0-2) /HPF Urine WBC (0-5) /HPF Ur Squamous Epith Cells (0-2) /HPF Urine Bacteria (None Seen) Hyaline Casts (0-2) /LPF Urine Test (NEGATIVE) Influenza Type A (PCR) (Negative) Influenza Type B (PCR) (Negative) RSV RNA Qual (PCR) (Negative) SARS-CoV-2 RNA (RT-PCR) (Negative) 07/11/22 07/11/22 07/11/22 Range/Units 17:55 17:55 17:55 WBC (4.8-10.8) X10*3/uL RBC (4.20-5.50) X10*6/uL Hgb (12.0-16.0) g/dl Hct (37.0-47.0) % MCV (80.0-98.0) fL MCH (27.0-33.0) pg MCHC (31.0-35.0) g/dl RDW (11.0-16.0) % Plt Count (160-400) X10*3/uL MPV (9.4-12.3) fL Immature Gran % (Auto) (0.0-0.4) % Neut % (Auto) (45-73) % Lymph % (Auto) (20-40) % [place] % (Auto) (2-11) % Eos % (Auto) (0-4) % Baso % (Auto) (0-2) % Lymph # (Auto) (1.2-4.9) X10*3/uL [place] # (Auto) (0.1-1.2) X10*3/uL Eos # (Auto) (0.0-0.4) X10*3/uL Baso # (Auto) (0.0-0.2) X10*3/uL Abs Immat Gran (auto) (0.00-0.03) X10*3/uL Absolute Neuts (auto) (2.0-8.3) x10*3/uL Absolute Nucleated RBC (0.0-0.012) X10*3/uL Nucleated RBC % (auto) (0.0-0.2) /100WBC D-Dimer High Sensitivty NG/ML Sodium (135-145) mmol/L Potassium (3.3-5.1) mmol/L Chloride (96-108) mmol/L Carbon Dioxide (22-29) mmol/L Anion Gap (12-20) BUN (9-16) mg/dL Creatinine (0.5-1.4) mg/dL Estim Creat Clear Calc Estimated GFR Random Glucose (60-115) mg/dL Calcium (8.4-10.2) mg/dL Magnesium (1.6-2.6) mg/dL Total Bilirubin (0.0-1.0) mg/dL AST (5-31) U/L ALT (0-31) U/L Alkaline Phosphatase (39-117) U/L Troponin I High Sens < 3.5 (<3.5-17.0) ng/L Total Protein (6.5-8.0) g/dL Albumin (3.5-5.0) g/dL Lipase (8-78) U/L Urine Color Yellow Urine Appearance Cloudy Urine pH 7.0 (5.0-9.0) Ur Specific [place] 1.020 (1.005-1.025) Urine Protein Trace (Neg-Trace) mg/dL Urine Glucose (UA) Negative (Negative) mg/dL Urine Ketones Negative (Negative) mg/dL Urine Blood Small (1+) H (Negative) Urine Nitrite Negative (Negative) Ur Leukocyte Esterase Large (3+) H (Negative) Urine RBC >20 H (0-2) /HPF Urine WBC 11-20 H (0-5) /HPF Ur Squamous Epith Cells >20 (0-2) /HPF Urine Bacteria 2+ (None Seen) Hyaline Casts 0-2 (0-2) /LPF Urine Test (NEGATIVE) Influenza Type A (PCR) NEGATIVE (Negative) Influenza Type B (PCR) NEGATIVE (Negative) RSV RNA Qual (PCR) NEGATIVE (Negative) SARS-CoV-2 RNA (RT-PCR) NEGATIVE (Negative) 07/11/22 Range/Units 17:55 WBC (4.8-10.8) X10*3/uL RBC (4.20-5.50) X10*6/uL Hgb (12.0-16.0) g/dl Hct (37.0-47.0) % MCV (80.0-98.0) fL MCH (27.0-33.0) pg MCHC (31.0-35.0) g/dl RDW (11.0-16.0) % Plt Count (160-400) X10*3/uL MPV (9.4-12.3) fL Immature Gran % (Auto) (0.0-0.4) % Neut % (Auto) (45-73) % Lymph % (Auto) (20-40) % [place] % (Auto) (2-11) % Eos % (Auto) (0-4) % Baso % (Auto) (0-2) % Lymph # (Auto) (1.2-4.9) X10*3/uL [place] # (Auto) (0.1-1.2) X10*3/uL Eos # (Auto) (0.0-0.4) X10*3/uL Baso # (Auto) (0.0-0.2) X10*3/uL Abs Immat Gran (auto) (0.00-0.03) X10*3/uL Absolute Neuts (auto) (2.0-8.3) x10*3/uL Absolute Nucleated RBC (0.0-0.012) X10*3/uL Nucleated RBC % (auto) (0.0-0.2) /100WBC D-Dimer High Sensitivty NG/ML Sodium (135-145) mmol/L Potassium (3.3-5.1) mmol/L Chloride (96-108) mmol/L Carbon Dioxide (22-29) mmol/L Anion Gap (12-20) BUN (9-16) mg/dL Creatinine (0.5-1.4) mg/dL Estim Creat Clear Calc Estimated GFR Random Glucose (60-115) mg/dL Calcium (8.4-10.2) mg/dL Magnesium (1.6-2.6) mg/dL Total Bilirubin (0.0-1.0) mg/dL AST (5-31) U/L ALT (0-31) U/L Alkaline Phosphatase (39-117) U/L Troponin I High Sens (<3.5-17.0) ng/L Total Protein (6.5-8.0) g/dL Albumin (3.5-5.0) g/dL Lipase (8-78) U/L Urine Color Urine Appearance Urine pH (5.0-9.0) Ur Specific [place] (1.005-1.025) Urine Protein (Neg-Trace) mg/dL Urine Glucose (UA) (Negative) mg/dL Urine Ketones (Negative) mg/dL Urine Blood (Negative) Urine Nitrite (Negative) Ur Leukocyte Esterase (Negative) Urine RBC (0-2) /HPF Urine WBC (0-5) /HPF Ur Squamous Epith Cells (0-2) /HPF Urine Bacteria (None Seen) Hyaline Casts (0-2) /LPF Urine Test NEGATIVE (NEGATIVE) Influenza Type A (PCR) (Negative) Influenza Type B (PCR) (Negative) RSV RNA Qual (PCR) (Negative) SARS-CoV-2 RNA (RT-PCR) (Negative) <FELICITY Mejias - Last Filed: 07/11/22 17:25> Lab Results 07/11/22 07/11/22 07/11/22 Range/Units 17:55 17:55 17:55 WBC 6.6 (4.8-10.8) X10*3/uL RBC 4.77 (4.20-5.50) X10*6/uL Hgb 13.9 (12.0-16.0) g/dl Hct 41.6 (37.0-47.0) % MCV 87.2 (80.0-98.0) fL MCH 29.1 (27.0-33.0) pg MCHC 33.4 (31.0-35.0) g/dl RDW 12.8 (11.0-16.0) % Plt Count 196 (160-400) X10*3/uL MPV 9.3 L (9.4-12.3) fL Immature Gran % (Auto) 0.2 (0.0-0.4) % Neut % (Auto) 67.3 (45-73) % Lymph % (Auto) 23.2 (20-40) % [place] % (Auto) 5.0 (2-11) % Eos % (Auto) 3.5 (0-4) % Baso % (Auto) 0.8 (0-2) % Lymph # (Auto) 1.5 (1.2-4.9) X10*3/uL [place] # (Auto) 0.3 (0.1-1.2) X10*3/uL Eos # (Auto) 0.2 (0.0-0.4) X10*3/uL Baso # (Auto) 0.1 (0.0-0.2) X10*3/uL Abs Immat Gran (auto) 0.01 (0.00-0.03) X10*3/uL Absolute Neuts (auto) 4.5 (2.0-8.3) x10*3/uL Absolute Nucleated RBC 0.000 (0.0-0.012) X10*3/uL Nucleated RBC % (auto) 0.0 (0.0-0.2) /100WBC D-Dimer High Sensitivty 543 NG/ML Sodium 140 (135-145) mmol/L Potassium 4.1 (3.3-5.1) mmol/L Chloride 105 (96-108) mmol/L Carbon Dioxide 30 H (22-29) mmol/L Anion Gap 9 L (12-20) BUN 6 L D (9-16) mg/dL Creatinine 0.69 (0.5-1.4) mg/dL Estim Creat Clear Calc 145.4 Estimated GFR > 60 Random Glucose 110 (60-115) mg/dL Calcium 9.1 (8.4-10.2) mg/dL Magnesium 1.9 (1.6-2.6) mg/dL Total Bilirubin 0.6 (0.0-1.0) mg/dL AST 34 H D (5-31) U/L ALT 62 H (0-31) U/L Alkaline Phosphatase 78 (39-117) U/L Troponin I High Sens (<3.5-17.0) ng/L Total Protein 6.9 (6.5-8.0) g/dL Albumin 4.0 (3.5-5.0) g/dL Lipase 20 (8-78) U/L Urine Color Urine Appearance Urine pH (5.0-9.0) Ur Specific [place] (1.005-1.025) Urine Protein (Neg-Trace) mg/dL Urine Glucose (UA) (Negative) mg/dL Urine Ketones (Negative) mg/dL Urine Blood (Negative) Urine Nitrite (Negative) Ur Leukocyte Esterase (Negative) Urine RBC (0-2) /HPF Urine WBC (0-5) /HPF Ur Squamous Epith Cells (0-2) /HPF Urine Bacteria (None Seen) Hyaline Casts (0-2) /LPF Urine Test (NEGATIVE) Influenza Type A (PCR) (Negative) Influenza Type B (PCR) (Negative) RSV RNA Qual (PCR) (Negative) SARS-CoV-2 RNA (RT-PCR) (Negative) 07/11/22 07/11/22 07/11/22 Range/Units 17:55 17:55 17:55 WBC (4.8-10.8) X10*3/uL RBC (4.20-5.50) X10*6/uL Hgb (12.0-16.0) g/dl Hct (37.0-47.0) % MCV (80.0-98.0) fL MCH (27.0-33.0) pg MCHC (31.0-35.0) g/dl RDW (11.0-16.0) % Plt Count (160-400) X10*3/uL MPV (9.4-12.3) fL Immature Gran % (Auto) (0.0-0.4) % Neut % (Auto) (45-73) % Lymph % (Auto) (20-40) % [place] % (Auto) (2-11) % Eos % (Auto) (0-4) % Baso % (Auto) (0-2) % Lymph # (Auto) (1.2-4.9) X10*3/uL [place] # (Auto) (0.1-1.2) X10*3/uL Eos # (Auto) (0.0-0.4) X10*3/uL Baso # (Auto) (0.0-0.2) X10*3/uL Abs Immat Gran (auto) (0.00-0.03) X10*3/uL Absolute Neuts (auto) (2.0-8.3) x10*3/uL Absolute Nucleated RBC (0.0-0.012) X10*3/uL Nucleated RBC % (auto) (0.0-0.2) /100WBC D-Dimer High Sensitivty NG/ML Sodium (135-145) mmol/L Potassium (3.3-5.1) mmol/L Chloride (96-108) mmol/L Carbon Dioxide (22-29) mmol/L Anion Gap (12-20) BUN (9-16) mg/dL Creatinine (0.5-1.4) mg/dL Estim Creat Clear Calc Estimated GFR Random Glucose (60-115) mg/dL Calcium (8.4-10.2) mg/dL Magnesium (1.6-2.6) mg/dL Total Bilirubin (0.0-1.0) mg/dL AST (5-31) U/L ALT (0-31) U/L Alkaline Phosphatase (39-117) U/L Troponin I High Sens < 3.5 (<3.5-17.0) ng/L Total Protein (6.5-8.0) g/dL Albumin (3.5-5.0) g/dL Lipase (8-78) U/L Urine Color Yellow Urine Appearance Cloudy Urine pH 7.0 (5.0-9.0) Ur Specific [place] 1.020 (1.005-1.025) Urine Protein Trace (Neg-Trace) mg/dL Urine Glucose (UA) Negative (Negative) mg/dL Urine Ketones Negative (Negative) mg/dL Urine Blood Small (1+) H (Negative) Urine Nitrite Negative (Negative) Ur Leukocyte Esterase Large (3+) H (Negative) Urine RBC >20 H (0-2) /HPF Urine WBC 11-20 H (0-5) /HPF Ur Squamous Epith Cells >20 (0-2) /HPF Urine Bacteria 2+ (None Seen) Hyaline Casts 0-2 (0-2) /LPF Urine Test (NEGATIVE) Influenza Type A (PCR) NEGATIVE (Negative) Influenza Type B (PCR) NEGATIVE (Negative) RSV RNA Qual (PCR) NEGATIVE (Negative) SARS-CoV-2 RNA (RT-PCR) NEGATIVE (Negative) 07/11/22 Range/Units 17:55 WBC (4.8-10.8) X10*3/uL RBC (4.20-5.50) X10*6/uL Hgb (12.0-16.0) g/dl Hct (37.0-47.0) % MCV (80.0-98.0) fL MCH (27.0-33.0) pg MCHC (31.0-35.0) g/dl RDW (11.0-16.0) % Plt Count (160-400) X10*3/uL MPV (9.4-12.3) fL Immature Gran % (Auto) (0.0-0.4) % Neut % (Auto) (45-73) % Lymph % (Auto) (20-40) % [place] % (Auto) (2-11) % Eos % (Auto) (0-4) % Baso % (Auto) (0-2) % Lymph # (Auto) (1.2-4.9) X10*3/uL [place] # (Auto) (0.1-1.2) X10*3/uL Eos # (Auto) (0.0-0.4) X10*3/uL Baso # (Auto) (0.0-0.2) X10*3/uL Abs Immat Gran (auto) (0.00-0.03) X10*3/uL Absolute Neuts (auto) (2.0-8.3) x10*3/uL Absolute Nucleated RBC (0.0-0.012) X10*3/uL Nucleated RBC % (auto) (0.0-0.2) /100WBC D-Dimer High Sensitivty NG/ML Sodium (135-145) mmol/L Potassium (3.3-5.1) mmol/L Chloride (96-108) mmol/L Carbon Dioxide (22-29) mmol/L Anion Gap (12-20) BUN (9-16) mg/dL Creatinine (0.5-1.4) mg/dL Estim Creat Clear Calc Estimated GFR Random Glucose (60-115) mg/dL Calcium (8.4-10.2) mg/dL Magnesium (1.6-2.6) mg/dL Total Bilirubin (0.0-1.0) mg/dL AST (5-31) U/L ALT (0-31) U/L Alkaline Phosphatase (39-117) U/L Troponin I High Sens (<3.5-17.0) ng/L Total Protein (6.5-8.0) g/dL Albumin (3.5-5.0) g/dL Lipase (8-78) U/L Urine Color Urine Appearance Urine pH (5.0-9.0) Ur Specific [place] (1.005-1.025) Urine Protein (Neg-Trace) mg/dL Urine Glucose (UA) (Negative) mg/dL Urine Ketones (Negative) mg/dL Urine Blood (Negative) Urine Nitrite (Negative) Ur Leukocyte Esterase (Negative) Urine RBC (0-2) /HPF Urine WBC (0-5) /HPF Ur Squamous Epith Cells (0-2) /HPF Urine Bacteria (None Seen) Hyaline Casts (0-2) /LPF Urine Test NEGATIVE (NEGATIVE) Influenza Type A (PCR) (Negative) Influenza Type B (PCR) (Negative) RSV RNA Qual (PCR) (Negative) SARS-CoV-2 RNA (RT-PCR) (Negative) <Pavan Waite MD - Last Filed: 07/12/22 01:23> Independent Interpretation I performed an independent interpretation of an: Plain X-Ray ( Chest: No acute pathology.) and CT Scan ( Abdomen: No acute intra-abdominal pathology. ) <Pavan Waite MD - Last Filed: 07/12/22 01:23> Interpretation: CT angio of the chest no PE. <Pavan Waite MD - Last Filed: 07/12/22 01:23> Radiology Impression Discussion of test interpretation with radiology: I have reviewed the radiologist's reading. <Pavan Waite MD - Last Filed: 07/12/22 01:23> Discharge Plan Discharge Clinical Impression: UTI (urinary tract infection), Pulmonary embolism, Gastritis <FELICITY Mejias - Last Filed: 07/11/22 17:25> Patient Disposition: Home, Self-Care <FELICITY Mejias - Last Filed: 07/11/22 17:25> Instructions: Pleurisy (ED), Gastritis (ED), Urinary Tract Infection in Women (ED) <FELICITY Mejias - Last Filed: 07/11/22 17:25> Prescriptions: New levofloxacin 750 mg tablet 750 mg PO DAILY Qty: 7 0RF omeprazole magnesium [Prilosec OTC] 20 mg tablet,delayed release (DR/EC) 20 mg PO BID Qty: 20 0RF phenazopyridine [Pyridium] 100 mg tablet 100 mg PO TID Qty: 6 0RF Eliquis DVT-PE Treat 30D Start 5 mg (74 tabs) tablets,dose pack 5 mg PO BID Qty: 74 0RF Rx Instructions: take 2 ( 10 mg) tab twice daily for 1 week then take 1 tablet twice daily. No Action doxycycline hyclate 100 mg capsule 100 mg PO BID Qty: 14 0RF azithromycin 250 mg tablet See Rx Instructions .ROUTE .COMPLEX Qty: 6 0RF Rx Instructions: take 500 mg today (day 1), then 250 mg for 4 days (days 2-5) cephalexin 500 mg capsule 500 mg PO TID 7 Days Qty: 21 0RF phenazopyridine [Pyridium] 100 mg tablet 100 mg PO TID PRN (Reason: pain) Qty: 6 0RF cefuroxime axetil 250 mg tablet 250 mg PO BID 7 Days Qty: 14 0RF diclofenac sodium 1 % gel 2 g topical QID Qty: 100 0RF Rx Instructions: apply to left lower back cyclobenzaprine 10 mg tablet 10 mg PO TID PRN (Reason: muscle spasm) Qty: 14 0RF ibuprofen 600 mg tablet 600 mg PO Q6H PRN (Reason: pain) Qty: 30 0RF <FELICITY Mejias - Last Filed: 07/11/22 17:25> Referrals: Yuliya Cadet NP [Primary Care Provider] - <FELICITY Mejias - Last Filed: 07/11/22 17:25> Stand Alone Forms: Work/School Release <FELICITY Mejias - Last Filed: 07/11/22 17:25>
[2022-07-11 17:22] VITALS: BP 128/82; PULSE 87; RESP 18; TEMP 36.6; O2SAT 98; BMI 38.2
--- NOTE | 2022-07-11 17:22 | ECG_ITS ---
Test Reason : ABDOMINAL PAIN Blood Pressure : / mmHG Vent. Rate : 084 BPM Atrial Rate : 084 BPM P-R Int : 116 ms QRS Dur : 082 ms QT Int : 362 ms P-R-T Axes : 025 076 029 degrees QTc Int : 427 ms Normal sinus rhythm Normal ECG When compared with ECG of 27-JUN-2019 16:42, Nonspecific T wave abnormality now evident in Anterior leads Referred By: Haley Gardner Electronically Signed By:ALO ELLIOTT MD
[2022-07-11 18:03] LABS: MANUAL DIFF FLAG NO
[2022-07-11 18:07] LABS: Basophils Absolute Auto 0.1 X10*3/uL (0.0-0.2); Basophils Percent Auto 0.8 % (0-2); Eosinophils Absolute Auto 0.2 X10*3/uL (0.0-0.4); Eosinophils Percent Auto 3.5 % (0-4); Hematocrit 41.6 % (37.0-47.0); Hemoglobin 13.9 g/dl (12.0-16.0); Imm Gran Abs Auto 0.01 X10*3/uL (0.00-0.03); Imm Gran Pct Auto 0.2 % (0.0-0.4); Lymphocytes Absolute Auto 1.5 X10*3/uL (1.2-4.9); Lymphocytes Percent Auto 23.2 % (20-40); Mean Corpuscular HGB Conc 33.4 g/dl (31.0-35.0); Mean Corpuscular Hemoglobin 29.1 pg (27.0-33.0); Mean Corpuscular Volume 87.2 fL (80.0-98.0); Mean Platelet Volume 9.3 fL (9.4-12.3); Monocytes Absolute Auto 0.3 X10*3/uL (0.1-1.2); Neutrophils Absolute Auto 4.5 x10*3/uL (2.0-8.3); Neutrophils Percent Auto 67.3 % (45-73); Platelet Count 196 X10*3/uL (160-400); Red Blood Count 4.77 X10*6/uL (4.20-5.50); Red Cell Distribution Width 12.8 % (11.0-16.0); White Blood Count 6.6 X10*3/uL (4.8-10.8)
[2022-07-11 18:09] LABS: Appearance Urine Cloudy; Color Urine Yellow; Glucose Urine UA Negative (Negative); Leukocyte Esterase Urine Large (3+) (Negative); Nitrite Urine Negative (Negative); UMIC TRIGGER UACC YES; Urine Blood Small (1+) (Negative); Urine Ketones Negative (Negative); Urine Protein Trace mg/dL (Neg-Trace)
[2022-07-11 18:10] LABS: Urine Pregnancy NEGATIVE (NEGATIVE)
[2022-07-11 18:11] LABS: UPreg QC Valid YES
[2022-07-11 18:14] LABS: Bacteria Urine 2+ (None Seen); D Dimer High Sensitivity 543 NG/ML; Hyaline Casts Urine 0-2 /LPF (0-2); RBC Urine >20 /HPF (0-2); Squamous Epithelial Cell Urine >20 /HPF (0-2); UACC Culture Trigger YES
[2022-07-11 18:23] LABS: Alanine Aminotransferase 62 U/L (0-31); Alkaline Phosphatase 78 U/L (39-117); Anion Gap 9 (12-20); Aspartate Amino Transferase 34 U/L (5-31); Bilirubin Total 0.6 mg/dL (0.0-1.0); Blood Urea Nitrogen 6 mg/dL (9-16); Calcium 9.1 mg/dL (8.4-10.2); Carbon Dioxide 30 mmol/L (22-29); Chloride 105 mmol/L (96-108); Creatinine Clr Calc Pharmacy 145.4; Estimated Glomerular Filt Rate > 60; Glucose Random 110 mg/dL (60-115); Lipase 20 U/L (8-78); Magnesium 1.9 mg/dL (1.6-2.6); Potassium 4.1 mmol/L (3.3-5.1); Sodium 140 mmol/L (135-145); Total Protein 6.9 g/dL (6.5-8.0)
[2022-07-11 18:28] LABS: Troponin-I High Sensitivity < 3.5 ng/L (<3.5-17.0)
[2022-07-11 18:52] LABS: Influenza A PCR NEGATIVE (Negative); Influenza B PCR NEGATIVE (Negative); Resp Syncy Virus RNA Qual PCR NEGATIVE (Negative); SARS COV2 PCR INHOUSE NEGATIVE (Negative)
[2022-07-11 21:54] VITALS: BP 120/73; PULSE 91; RESP 16; TEMP 36.6; O2SAT 97
[2022-07-11] MEDS: levoFLOXacin 750 MG TABLET PO (22:49)
[2022-07-11] MEDS: Omeprazole 40 MG CAPSULE.DR PO (22:49)
[2022-07-11] MEDS: Magnesium Hydrox/Alum Hydrox 30 ML ORAL.SUSP PO (22:50)
[2022-07-11] MEDS: Phenazopyridine HCL 100 MG TABLET PO (22:50)
--- NOTE | 2022-07-11 22:52 | PC.NURSE ---
Pt alert and oriented. Resting quietly while watching tv on her personal laptop, significant other at bedside. Administered meds per SEP.
[2022-07-12 00:15] VITALS: BP 135/76; PULSE 91; RESP 16; TEMP 36.6; O2SAT 97
[2022-07-12] MEDS: iohexoL 350 MG/ML 100 ML INFUS..BTL IV (00:32)
[2022-07-12] MEDS: Apixaban 5 MG TABLET 10 MG PO (01:51)
== END 2022-07-12 01:53 | disposition home or self-care (01) ==
PROVIDERS: Physician Assistant; Emergency Provider Emergency Medicine; PCP Nurse Practitioner Primary Care
DX: N39.0 Urinary tract infection, site not specified (principal); I26.99 Other pulmonary embolism without acute cor pulmonale; K29.70 Gastritis, unspecified, without bleeding; R07.89 Other chest pain; R06.02 Shortness of breath; Z20.822 Contact with and (suspected) exposure to COVID-19; Z79.899 Other long term (current) drug therapy
CPT/HCPCS: 0241U; 36415; 71045; 71275; 74176; 80053; 81001; 81025; 83690; 83735; 84484; 85025; 85379; 87086; 93005; 99284; Q9967

== ENCOUNTER → 2023-01-24 14:48 | Outpatient (REF) | payer MEDICAID, SELFPAY ==
--- NOTE | 2023-01-24 14:50 | CA_ITS ---
Transthoracic Echocardiogram Patient (Last, First, Middle): Ciera Borrero, Gender: Female Date of : 1995 Age: 27 Procedure Date: 01/24/2023 Procedure Type: Transthoracic Echocardiogram Location: OP Height: 165.1 cm Weight: 102.51 kg BSA: 2.08 m2 Heart Rate: 75 bpm BP: 128 / 74 mmHg Lobby Porter: AIME Referring MD: Yuliya Cadet NP Mechanical Artist: Jarad Cotton MD Symptoms: HX PULMONARY EMBOLISM Study Quality: Adequate ECG Rhythm: Sinus Conclusions: - Normal study Findings Left Ventricle Normal left ventricular size, thickness, and systolic function. The visually estimated ejection fraction is between 60-65%. Diastolic function is normal for age. Right Ventricle Normal right ventricular cavity size and systolic function. Atria Both atria are normal in size. There is no evidence of interatrial shunt. Aortic Valve Normal aortic valve structure and function. There is no aortic valve stenosis. There is no aortic valve regurgitation. Mitral Valve Normal mitral valve structure and function. There is trace mitral valve regurgitation. There is no mitral valve stenosis. Pulmonic Valve The pulmonic valve is likely normal. There is trace pulmonic valve regurgitation. Tricuspid Valve Normal tricuspid valve structure. There is trace tricuspid valve regurgitation. The right ventricular systolic pressure is normal. The right ventricular systolic pressure is 19 mmHg. Normal right atrial pressure. There is no evidence of pulmonary hypertension. Great Vessels All visible segments of the aorta are normal in size. The visualized portions of the pulmonary artery and branches are normal. Venous The inferior vena cava is normal in size and collapses greater than 50% with inspiration. Pericardium/Pleural There is no evidence of pericardial effusion. Prior Study Comparison No prior study available for comparison. Measurements 2D Linear Measurements IVSd: 0.83 0.6-0.9/0.6-1.0 cm LVIDd: 4.82 3.9-5.3/4.2-5.9 cm LVIDd Index: 2.32 2.4-3.2/2.2-3.1 cm/m2 LVIDs: 3.29 2.0-3.6 cm LVPWd: 0.82 0.7-1.1 cm LA Diam: 3.40 2.7-3.8/3.0-4.0 cm LAIDs Index: 1.63 1.5-2.3 cm/m2 LV Mass: 165.34 67-162/88-224 g LV Mass Index: 79.49 43-95/49-115 g/m2 LVOT Diam: 2.00 3.0+(-)1.3 cm 2D Systolic Function EF Teich: 59.00 >55% Mitral Valve MV Pk E: 0.62 MV PK A: 0.52 MV Decel Time: 183.00 E/A: 1.20 E'Lateral: 8.49 E'Medial: 8.05 E/E' Med: 7.70 E/E' Lat: 7.30 PHT: 54.00 MVA PHT: 4.07 Decel Pike: 3.39 Aortic Valve AoV Pk Pritesh: 1.27 AoV Pk Grad: 6.00 JAMES: 2.29 LVOT LVOT Pk Pritesh: 0.94 LVOT Mn Pritesh: 0.67 LVOT VTI: 0.18 LVOT Pk Grad: 4.00 LVOT Mn Grad: 2.00 LVOT Diam: 2.00 LVOT Area: 3.14 Diastolic Function MV Pk E: 0.62 MV Pk A: 0.52 E/A: 1.20 E'Medial: 8.05 E/E' Med: 7.70 E' Laterial: 8.49 E/E' Lat: 7.30 Right Ventricle TAPSE (mm): 16.30 TVS' Pritesh: 11.30 Tricuspid Valve TR Pk Pritesh: 2.02 TR Pk Grad: 16.00 RA Press: 3.00 RVSP: 19.00 Great Vessels Aorta Sinus of Valsalva: 2.60 2.0-3.5 cm Ao Asc: 2.50 2.1-3.4 cm Ao Arch: 2.20 Pulmonary Veins Pulm Vein S/D 0.90 Pulmonary Valve PV Pk Pritesh: 0.82 Peak PV Grad: 3.00 Updated in Other Vendor System with Status of Final Jarad Cotton MD electronically signed on 01/24/2023 4:28:15 PM with status of Final
== END ==
LOC: HO.CARD 14:48
PROVIDERS: PCP Nurse Practitioner Primary Care; Visit Provider Nurse Practitioner Primary Care
DX: Z86.711 Personal history of pulmonary embolism (principal)
CPT/HCPCS: 93306

== ENCOUNTER → 2023-01-24 14:50 | Outpatient (BNV) | payer MEDICAID, SELFPAY | PROVIDERS: PCP Nurse Practitioner Primary Care; Visit Provider Internal Medicine Cardiovascular Disease | DX: I26.99 Other pulmonary embolism without acute cor pulmonale (principal) | CPT/HCPCS: 93306 ==

== ENCOUNTER 2023-09-15 12:49 | Emergency (ER) | payer OTHER, SELFPAY ==
[2023-09-15 13:13] VITALS: BP 112/72; PULSE 114; RESP 20; TEMP 36.8; O2SAT 96; BMI 36.7
--- NOTE | 2023-09-15 13:13 | ED_ITS ---
HPI - General Adult General Chief complaint: Nausea/Vomiting/Diarrhea Stated complaint: diarrhea abd pain vomiting Time Seen by Provider: 09/15/23 19:14 Source: patient, RN notes reviewed and old records reviewed Mode of arrival: ambulatory Limitations: no limitations History of Present Illness HPI narrative: 27-year-old female presents for evaluation abdominal pain, vomiting, diarrhea. She reports her symptoms started 3 days ago. She reports nonbloody diarrhea She reports using a heating pad earlier today made her symptoms worse. She is status post cholecystectomy. No other abdominal surgeries pain Denies any urinary complaints. Denies any other sick contacts recent travel recent antibiotic use Related Data Home Medications Medication Instructions Recorded Confirmed dulaglutide 0.75 mg/0.5 mL 0.75 mg subcut QWEEK 01/29/23 01/29/23 subcutaneous pen injector (Trulicity) escitalopram oxalate 10 mg tablet 10 mg PO DAILY 01/29/23 01/29/23 (Lexapro) folic acid 1 mg tablet 1 mg PO DAILY 01/29/23 01/29/23 thiamine HCl (vitamin B1) 100 mg 100 mg PO DAILY 01/29/23 01/29/23 tablet Previous Rx's Medication Instructions Recorded doxycycline hyclate 100 mg capsule 100 mg PO BID #14 caps 12/13/20 azithromycin 250 mg tablet See Rx Instructions PO .COMPLEX 09/25/21 upper resp infection #6 tabs cephalexin 500 mg capsule 500 mg PO TID 7 days #21 caps 12/19/21 phenazopyridine 100 mg tablet 100 mg PO TID PRN pain 6 doses #6 12/19/21 (Pyridium) tabs cefuroxime axetil 250 mg tablet 250 mg PO BID 7 days #14 tabs 01/09/22 diclofenac sodium 1 % topical gel 2 g topical QID #100 grams 01/09/22 cyclobenzaprine 10 mg tablet 10 mg PO TID PRN muscle spasm #14 02/23/22 tabs ibuprofen 600 mg tablet 600 mg PO Q6H PRN pain #30 tabs 02/23/22 levofloxacin 750 mg tablet 750 mg PO DAILY #7 tabs 07/11/22 omeprazole magnesium 20 mg 20 mg PO BID #20 tabs 07/11/22 tablet,delayed release (Prilosec OTC) phenazopyridine 100 mg tablet 100 mg PO TID #6 tabs 07/11/22 (Pyridium) apixaban 5 mg (74 tabs) tablets in 5 mg PO BID #74 ea 07/12/22 a dose pack (Eliquis DVT-PE Treat 30D Start) loperamide 2 mg tablet (Imodium 2 mg PO Q4H PRN loose stool #12 09/15/23 A-D) tabs ondansetron 4 mg disintegrating 4 mg PO Q8H PRN nausea and 09/15/23 tablet vomiting #20 tabs Allergies Allergy/AdvReac Type Severity Reaction Status Date / Time No Known Allergies Allergy Verified 09/15/23 13:16 [No Known Allergies*] Review of Systems 2 Constitutional: Constitutional: Denies body ache(s), Denies chills and Denies fever(s) Cardiovascular: Cardiovascular: Denies chest pain and Denies dyspnea Respiratory: Respiratory: Denies cough and Denies dyspnea Gastrointestinal: Gastrointestinal: Reports abdominal pain, Denies melena, Denies hematochezia, Reports diarrhea, Reports loose stools, Reports nausea and Reports vomiting Musculoskeletal: Musculoskeletal: Reports back pain Integumentary/Breasts: Skin/Breast: Denies rash PMFSH Past Medical History Medical History (Updated 09/15/23 @ 19:30 by Cain Whalen) Obesity History of pulmonary embolism (~07/11/22) Depression Anxiety Surgical History Hx of cholecystectomy No history of previous surgery Social History Social History (Updated 01/29/23 @ 13:53 by Jayleen Savage) Household Members: Significant Other Housing: Apartment Alcohol intake: current Alcohol intake frequency: a few times a week Alcohol type: hard liquor Patient Tobacco Use Status: Current everyday Tobacco user Tobacco use type: Cigarette Cigarette Packs Per Day: 8 Cigarettes Per Day: 160.0 Advance Directives: No Advance Directives Information Provided: No service: No Current occupational status: employed Physical Exam ED Vital Signs: Vital Signs - 24 hr 09/15/23 13:13 Temperature 98.3 F Pulse Rate 114 H Respiratory Rate 20 Blood Pressure 112/72 Pulse Oximetry 96 Oxygen Delivery Method Room Air BMI result Body Mass Index 36.7 Const General: healthy appearing, comfortable, no acute distress, alert and awake Nutritional Appearance: well nourished Orientation/consciousness: patient oriented x3 HENMT Head: Yes normocephalic and Yes atraumatic Eyes Eyelids: Yes eyelids normal Conjunctivae: conjunctivae normal Sclerae: sclerae normal Corneas: corneas normal Pupils: Equal, round and reactive pupils present EOM: EOMs intact bilaterally Neck Neck: Yes full ROM Resp Effort & Inspection: normal respiratory effort, able to speak in complete sentences and not labored GI Inspection: No distended Palpation (GI): Soft to palpation, not firm, Tenderness to palpation present (GI) (Diffuse subjective tenderness without guarding or rebound), no guarding and not rigid Skin General skin exam: elasticity normal Neuro General: patient oriented x3 Cranial nerves: Yes Equal, round and reactive pupils present and Yes Bilaterally intact EOM present Cognition (Neuro): normal cognition Extrem Other: Moving all extremities well without any obvious deformities Course Course Course Narrative: RME- 27-year-old female presents for evaluation abdominal pain vomiting and diarrhea. Symptoms started 3 days ago. Plan for labs, viral swab. She is status post cholecystectomy Medical Decision Making Medical Decision Making [facility] Narrative: 27-year-old female presents for evaluation abdominal pain vomiting and diarrhea. She has no fever, no leukocytosis. No focal right lower quadrant tenderness. Acute appendicitis is favored to be less likely. No history of dehydration, no evidence of renal injury. Patient be discharged with symptomatic care likely viral etiology. I did discuss CT abdomen pelvis with the patient she declines which I feel is appropriate Differential Diagnosis Differential Diagnoses: The differential diagnosis associated with the presentation includes Colitis Diverticulitis Gastroenteritis Abdominal pain Acute appendicitis less likely Lab Data [facility] Lab Attestation statement: I reviewed the patient's lab results. No leukocytosis or anemia. No significant electrolyte abnormalities. 09/15/23 13:59 09/15/23 13:59 Labs: Lab Results 09/15/23 Range/Units 13:59 WBC 5.7 (4.8-10.8) X10*3/uL RBC 4.62 (4.20-5.50) X10*6/uL Hgb 13.8 (12.0-16.0) g/dl Hct 40.4 (37.0-47.0) % MCV 87.4 (80.0-98.0) fL MCH 29.9 (27.0-33.0) pg MCHC 34.2 (31.0-35.0) g/dl RDW 12.0 (11.0-16.0) % Plt Count 144 L D (160-400) X10*3/uL MPV 9.4 (9.4-12.3) fL Immature Gran % (Auto) 0.2 (0.0-0.4) % Neut % (Auto) 81.9 H (45-73) % Lymph % (Auto) 9.8 L (20-40) % [place] % (Auto) 6.8 (2-11) % Eos % (Auto) 1.1 (0-4) % Baso % (Auto) 0.2 (0-2) % Lymph # (Auto) 0.6 L (1.2-4.9) X10*3/uL [place] # (Auto) 0.4 (0.1-1.2) X10*3/uL Eos # (Auto) 0.1 (0.0-0.4) X10*3/uL Baso # (Auto) 0.0 (0.0-0.2) X10*3/uL Abs Immat Gran (auto) 0.01 (0.00-0.03) X10*3/uL Absolute Neuts (auto) 4.7 (2.0-8.3) x10*3/uL Absolute Nucleated RBC 0.000 (0.0-0.012) X10*3/uL Nucleated RBC % (auto) 0.0 (0.0-0.2) /100WBC Sodium 138 (135-145) mmol/L Potassium 3.8 (3.3-5.1) mmol/L Chloride 105 (96-108) mmol/L Carbon Dioxide 26 (22-29) mmol/L Anion Gap 11 L (12-20) BUN 7 L (9-16) mg/dL Creatinine 0.66 (0.5-1.4) mg/dL Estim Creat Clear Calc 147.3 Estimated GFR > 60 Random Glucose 94 (60-115) mg/dL Calcium 8.9 (8.4-10.2) mg/dL Total Bilirubin 0.8 (0.0-1.0) mg/dL AST 17 (5-31) U/L ALT 12 (0-31) U/L Alkaline Phosphatase 57 (39-117) U/L Total Protein 6.9 (6.5-8.0) g/dL Albumin 3.8 (3.5-5.0) g/dL Lipase 11 (8-78) U/L Beta HCG, Quant < 2 mIU/mL Influenza Type A (PCR) NEGATIVE (Negative) Influenza Type B (PCR) NEGATIVE (Negative) RSV RNA Qual (PCR) NEGATIVE (Negative) SARS-CoV-2 RNA (RT-PCR) NEGATIVE (Negative) Tests considered The following testing was considered but not selected: Consider CT scan of the abdomen pelvis but patient ultimately declined Discharge Plan Discharge Clinical Impression: Abdominal pain, vomiting, and diarrhea Patient Disposition: Home, Self-Care Instructions: Abdominal Pain (ED) Additional Instructions: Your blood work was reassuring. Take Zofran as needed for nausea/vomiting. You may use Imodium as needed for diarrhea Drink lots of fluids Follow-up with your primary doctor Return for new or worsening symptoms, especially she get a fever Prescriptions: New ondansetron 4 mg tablet,disintegrating 4 mg PO Q8H PRN (Reason: nausea and vomiting) Qty: 20 0RF loperamide [Imodium A-D] 2 mg tablet 2 mg PO Q4H PRN (Reason: loose stool) Qty: 12 0RF Rx Instructions: administer after each loose stool until symptoms controlled; do not exceed 8 mg per 24 hrs No Action doxycycline hyclate 100 mg capsule 100 mg PO BID Qty: 14 0RF azithromycin 250 mg tablet See Rx Instructions .ROUTE .COMPLEX Qty: 6 0RF Rx Instructions: take 500 mg today (day 1), then 250 mg for 4 days (days 2-5) cephalexin 500 mg capsule 500 mg PO TID 7 Days Qty: 21 0RF phenazopyridine [Pyridium] 100 mg tablet 100 mg PO TID PRN (Reason: pain) Qty: 6 0RF cefuroxime axetil 250 mg tablet 250 mg PO BID 7 Days Qty: 14 0RF diclofenac sodium 1 % gel 2 g topical QID Qty: 100 0RF Rx Instructions: apply to left lower back levofloxacin 750 mg tablet 750 mg PO DAILY Qty: 7 0RF omeprazole magnesium [Prilosec OTC] 20 mg tablet,delayed release (DR/EC) 20 mg PO BID Qty: 20 0RF phenazopyridine [Pyridium] 100 mg tablet 100 mg PO TID Qty: 6 0RF Eliquis DVT-PE Treat 30D Start 5 mg (74 tabs) tablets,dose pack 5 mg PO BID Qty: 74 0RF Rx Instructions: take 2 ( 10 mg) tab twice daily for 1 week then take 1 tablet twice daily. thiamine HCl (vitamin B1) 100 mg Tablet 100 mg PO DAILY folic acid 1 mg Tablet 1 mg PO DAILY escitalopram oxalate [Lexapro] 10 mg Tablet 10 mg PO DAILY Trulicity 0.75 mg/0.5 mL Pen Injector 0.75 mg SUBCUT QWEEK cyclobenzaprine 10 mg tablet 10 mg PO TID PRN (Reason: muscle spasm) Qty: 14 0RF ibuprofen 600 mg tablet 600 mg PO Q6H PRN (Reason: pain) Qty: 30 0RF Stand Alone Forms: Work/School Release
[2023-09-15 14:05] LABS: MANUAL DIFF FLAG NO
[2023-09-15 14:06] LABS: Basophils Percent Auto 0.2 % (0-2); Eosinophils Absolute Auto 0.1 X10*3/uL (0.0-0.4); Eosinophils Percent Auto 1.1 % (0-4); Hematocrit 40.4 % (37.0-47.0); Hemoglobin 13.8 g/dl (12.0-16.0); Imm Gran Abs Auto 0.01 X10*3/uL (0.00-0.03); Imm Gran Pct Auto 0.2 % (0.0-0.4); Lymphocytes Absolute Auto 0.6 X10*3/uL (1.2-4.9); Lymphocytes Percent Auto 9.8 % (20-40); Mean Corpuscular HGB Conc 34.2 g/dl (31.0-35.0); Mean Corpuscular Hemoglobin 29.9 pg (27.0-33.0); Mean Corpuscular Volume 87.4 fL (80.0-98.0); Mean Platelet Volume 9.4 fL (9.4-12.3); Monocytes Absolute Auto 0.4 X10*3/uL (0.1-1.2); Monocytes Percent Auto 6.8 % (2-11); Neutrophils Absolute Auto 4.7 x10*3/uL (2.0-8.3); Neutrophils Percent Auto 81.9 % (45-73); Platelet Count 144 X10*3/uL (160-400); Red Blood Count 4.62 X10*6/uL (4.20-5.50); White Blood Count 5.7 X10*3/uL (4.8-10.8)
[2023-09-15 14:21] LABS: Alanine Aminotransferase 12 U/L (0-31); Albumin Level 3.8 g/dL (3.5-5.0); Alkaline Phosphatase 57 U/L (39-117); Anion Gap 11 (12-20); Aspartate Amino Transferase 17 U/L (5-31); Bilirubin Total 0.8 mg/dL (0.0-1.0); Blood Urea Nitrogen 7 mg/dL (9-16); Calcium 8.9 mg/dL (8.4-10.2); Carbon Dioxide 26 mmol/L (22-29); Chloride 105 mmol/L (96-108); Creatinine Clr Calc Pharmacy 147.3; Estimated Glomerular Filt Rate > 60; Glucose Random 94 mg/dL (60-115); Lipase 11 U/L (8-78); Potassium 3.8 mmol/L (3.3-5.1); Sodium 138 mmol/L (135-145); Total Protein 6.9 g/dL (6.5-8.0)
[2023-09-15 14:29] LABS: HCG Quantitative < 2 mIU/mL
[2023-09-15 15:00] LABS: Influenza A PCR NEGATIVE (Negative); Influenza B PCR NEGATIVE (Negative); Resp Syncy Virus RNA Qual PCR NEGATIVE (Negative); SARS COV2 PCR INHOUSE NEGATIVE (Negative)
== END 2023-09-15 19:49 | disposition home or self-care (01) ==
PROVIDERS: Physician Assistant; Emergency Provider Emergency Medicine; PCP Nurse Practitioner Primary Care
DX: R11.10 Vomiting, unspecified (principal); R19.7 Diarrhea, unspecified; R10.9 Unspecified abdominal pain; Z11.52 Encounter for screening for COVID-19; Z20.828 Contact with and (suspected) exposure to other viral communicable diseases
CPT/HCPCS: 0241U; 36415; 80053; 83690; 84702; 85025; 99283